=== PATIENT | female | born 1935 | race Caucasian/White ===

== ENCOUNTER 2018-06-26 08:17 | Inpatient (IN) | payer OTHER ==
[~2018-06-26] VITALS: Ht 152.4 cm; Wt 70.8 kg
[2018-06-26 08:26] VITALS: BP 143/76
[2018-06-26] MEDS ORDERED: COZAAR 25 MG TA25 M1 PO (08:39)
[2018-06-26] MEDS ORDERED: SYNTHROID100 MC1 PO (08:39)
[2018-06-26] MEDS ORDERED: ATORVASTATIN CA20 MG PO (08:39)
[2018-06-26] MEDS ORDERED: LASIX 20 MG TAB20 MG PO (08:39)
[2018-06-26] MEDS ORDERED: CLARITIN10 MG PO (08:40)
[2018-06-26 08:41] LABS: HEMATOCRIT 32.3 % (37.0-47.0); HEMOGLOBIN 11.1 gm/dL (12.0-15.0); MCH 35.3 pg (26.0-34.0); MCHC 34.2 g/dL (28.0-37.0); MCV 103.2 fL (80.0-100.0); MPV 8.3 fl. (7.2-11.1); NUCLEATED RBCS 0 /100WBC; PLATELET COUNT* 153 thou/uL (150-400); RBC 3.13 mil/uL (4.20-5.00); RDW-CV 13.1 % (10.5-14.5); WBC 5.6 thou/uL (4.0-11.0)
[2018-06-26 08:48] LABS: CREATININE 1.1 mg/dL (0.6-1.3)
[2018-06-26 09:02] LABS: ALBUMIN 3.1 g/dL (3.4-5.0); TOTAL PROTEIN 6.9 g/dL (6.4-8.2); TROPONIN-I LEVEL 0.08 ng/mL (<0.06)
[2018-06-26 09:16] LABS: ABSOLUTE LYMPHOCYTES 0.8 thou/uL (0.8-5.3); ABSOLUTE MONOCYTES 0.1 thou/uL (0.0-1.2); ABSOLUTE NEUTROPHILS 4.7 thou/uL (1.6-8.1)
[2018-06-26 09:43] LABS: URINE BILIRUBIN NEGATIVE (Negative); URINE BLOOD 1+ (Negative); URINE CLARITY CLEAR; URINE COLOR YELLOW; URINE GLUCOSE-RANDOM NEGATIVE (Negative); URINE KETONES TRACE (Negative); URINE LEUKOCYTES-REFLEX NEGATIVE (Negative); URINE NITRITE-REFLEX NEGATIVE (Negative); URINE PROTEIN TRACE (Negative)
[2018-06-26 10:00] LABS: BACTERIA-REFLEX 1-9 Few /HPF (None Seen); CASTS None Seen /LPF (None Seen); CRYSTALS None Seen /LPF (None Seen); MUCUS None Seen strn/LPF (None Seen); SQUAMOUS 0-3 Few /LPF (0-3); URINE RBC 3-10 Few /HPF (0-2); URINE WBC-REFLEX 0-5 Rare /HPF (0-5)
[2018-06-26 11:47] VITALS: BP 142/69
[2018-06-26 12:10] VITALS: BP 148/79
--- NOTE | 2018-06-26 16:26 | EKG ---
[place] [address] ELECTROCARDIOGRAM REPORT Name: NAYELY JAQUEZ Room: [address] ADM IN M.R.#: [id number] Admission: 06/26/18 Attend Phys: Payton Cantu MD Discharge: Date of : 39 Report #: [id number] THIS REPORT FOR: //name// [facility] ED Test Date: 2018-06-26 Test Time: 08:51:59 Pat Name: NAYELY JAQUEZ Department: Room: [facility] Gender: F Liquid Loader: : 1935 Requested By: Jocy Wyatt Order Number: [id number] MD: Toni Michelle Measurements Intervals [place] Rate: 62 P: 3 GA: 60 QRS: 2 QRSD: 92 T: 10 QT: 435 QTc: 442 Interpretive Statements Atrial-paced complexes Probable left atrial enlargement Low voltage, precordial leads Borderline T abnormalities, anterior leads No previous ECG available for comparison Electronically Signed On 06-26-2018 16:26:19 APPLICATION SUPPORT TECHNICIAN by Toni Michelle [email or web address] <ELECTRONICALLY SIGNED> By: Toni Michelle MD, [facility] 06/26/18 [id number] Toni Michelle MD, [facility] /EPI
--- NOTE | 2018-06-26 16:46 | 2DMMODE ---
[place] [address] 2 D/M-MODE ECHOCARDIOGRAM Name: GISELENAYELY Room: [address] IN [facility]#: [id number] Admission: 06/26/18 Attend Phys: Payton Cantu, Discharge: Date of : 39 Date of Service: 06/26/18 1645 Report #: [id number] THIS REPORT FOR: //name// APPROVED REPORT Study performed: 06/26/2018 15:39:52 EXAM: Comprehensive 2D, Doppler, and color-flow Echocardiogram Patient Location: In-Patient Room #: 202 Status: routine BSA: 1.71 HR: 64 bpm BP: 142/69 mmHg Rhythm: NSR Other Information Study Quality: Good Indications Elevated Troponin 2D Dimensions IVSd: 11.07 (7-11mm) LVOT Diam: 19.32 (18-24mm) LVDd: 45.44 mm PWd: 11.07 (7-11mm) Ascending Ao: 40.28 (22-36mm) LVDs: 23.89 (25-40mm) Aortic Root: 30.70 mm Volumes Left Atrial Volume (Systole) LA ESV Index: 35.00 mL/m2 Aortic Valve AoV Peak Napoleon.: 1.31 m/s AO Peak Gr.: 6.84 mmHg LVOT Max P.71 mmHg AO Mean Gr.: 3.56 mmHg LVOT Mean P.56 mmHg LVOT Max V: 0.96 m/s AO V2 VTI: 28.88 cm LVOT Mean V: 0.56 m/s CAMRYN (VTI): 2.39 cm2 LVOT V1 VTI: 23.54 cm AI [place]: 1.55 m/s2 AI PHT: 757.23 ms Mitral Valve E/A Ratio: 0.62 [place] [address] 2 D/M-MODE ECHOCARDIOGRAM Name: NAYELY JAQUEZ Room: [address] IN .R.#: [id number] Admission: 06/26/18 Attend Phys: Payton Cantu, Discharge: Date of : 39 Date of Service: 06/26/18 1645 Report #: [id number] MV Decel. Time: 327.37 ms MV E Max Napoleon.: 0.60 m/s MV PHT: 94.94 ms MVA (PHT): 2.32 cm2 TDI E/Lateral E': 8.57 E/Medial E': 8.57 Medial E' Napoleon.: 0.07 m/s Lateral E' Napoleon.: 0.07 m/s Pulmonary Valve PV Peak Napoleon.: 0.80 m/s PV Peak Gr.: 2.56 mmHg Tricuspid Valve RAP Estimate: 5.00 mmHg TR Peak Gr.: 19.00 mmHg RVSP: 24.00 mmHg PA Pressure: 24.00 mmHg Left Ventricle The left ventricle is normal size. There is normal LV segmental wall motion. There is normal left ventricular wall thickness. Left ventricular systolic function is normal. LVEF is 60-65%. Grade I - abnormal relaxation pattern. Right Ventricle The right ventricle is normal size. The right ventricular systolic function is normal. Pacemaker lead is present in the right ventricle. Atria Left atrium is mildly dilated. The right atrium size is normal. Aortic Valve The aortic valve is normal in structure. Mild aortic regurgitation. There is no aortic valvular stenosis. Mitral Valve There is mitral annular calcification. Trace mitral regurgitation. No evidence of mitral valve stenosis. Tricuspid Valve The tricuspid valve is normal in structure. Mild tricuspid regurgitation. No pulmonary hypertension. Pulmonic Valve The pulmonary valve is normal [place] [address] 2 D/M-MODE ECHOCARDIOGRAM Name: NAYELY JAQUEZ Room: [address] IN [facility]#: [id number] Admission: 06/26/18 Attend Phys: Payton Cantu, Discharge: Date of : 39 Date of Service: 06/26/18 1645 Report #: [id number] regurgitation. Great Vessels The aortic root is normal in size. The ascending aorta is mildly dilated. IVC is normal in size and collapses >50% with inspiration. Pericardium There is no pericardial effusion. <Conclusion> The left ventricle is normal size. There is normal left ventricular wall thickness. Left ventricular systolic function is normal. LVEF is 60-65%. Grade I - abnormal relaxation pattern. Left atrium is mildly dilated. Pacemaker lead is present in the right ventricle. Mild aortic regurgitation. Trace mitral regurgitation. Mild tricuspid regurgitation. No pulmonary hypertension. IVC is normal in size and collapses >50% with inspiration. The ascending aorta is mildly dilated. <ELECTRONICALLY SIGNED> By: Toni Michelle MD, FACC 06/26/18 1645 1645 1645 Toni Michelle MD, FACC /INF
--- NOTE | 2018-06-26 17:50 | NUR ---
PATIENT PROGRESSING TOWARDS GOALS. TOLERATING A CLEAR LIQUID DIET WITHOUT NAUSEA OR VOMITING. VOIDING PER BEDPAN. IVF INFUSNG. PATIENTS DAUGHTER AT BEDSIDE AND UPDATED ON PLAN OF CARE. NEW IV STARTED IN PATIENTS LEFT FOREARM VIA DATA CONTROL CLERK SUPERVISOR. HOURLY ROUNDING CHARTED. BED ALARM ON. REPOSITIONING FOR COMFORT. WILL CONTINUE PLAN OF CARE.
[2018-06-26 20:00] VITALS: BP 128/66
[2018-06-27] VITALS: BP 111/64
--- NOTE | 2018-06-27 03:59 | NUR ---
ASSUMED CARE OF PT AT 1900. PT IS CONFUSED. VIC. ALYSSA. PT IS A Q2 TURN. PT HAS BRUISING TO HER FACE FROM FALL. FAMILY REPORTS PT IS SOMEWHAT CONFUSED AT HOME, BUT IS WORSE SINCE YESTERDAY. PT IS A PACED ON THE TELEMETRY. PT IS RESTING COMFORTABLY IN BED. RESPIRATIONS ARE EVEN AND NONLABORED. WILL CONTINUE TO MONITOR PT.
[2018-06-27 04:00] VITALS: BP 119/64
[2018-06-27 05:31] LABS: HEMATOCRIT 29.3 % (37.0-47.0); HEMOGLOBIN 10.1 gm/dL (12.0-15.0); MCH 35.5 pg (26.0-34.0); MCHC 34.5 g/dL (28.0-37.0); MCV 102.9 fL (80.0-100.0); MPV 8.2 fl. (7.2-11.1); RBC 2.85 mil/uL (4.20-5.00); WBC 4.4 thou/uL (4.0-11.0)
[2018-06-27 05:52] LABS: ALBUMIN 2.6 g/dL (3.4-5.0); ALKALINE PHOSPHATASE 57 U/L (46-116); ANION GAP 7 mmol/L (7-16); BUN 23 mg/dL (7-18); CALCIUM 8.5 mg/dL (8.5-10.1); CHLORIDE 106 mmol/L (98-107); CO2 26 mmol/L (21-32); CREATININE 0.9 mg/dL (0.6-1.3); GLUCOSE 64 mg/dL (70-99); MAGNESIUM 1.8 mg/dL (1.8-2.4); POTASSIUM 3.5 mmol/L (3.5-5.1); SGOT 93 U/L (15-37); SGPT 31 U/L (30-65); SODIUM 139 mmol/L (136-145); TOTAL BILIRUBIN 0.7 mg/dL (<0.1-1.0); TOTAL PROTEIN 5.9 g/dL (6.4-8.2); TROPONIN-I LEVEL <0.06 ng/mL (<0.06)
--- NOTE | 2018-06-27 06:36 | NUR ---
PT'S BLOOD GLUCOSE CAME BACK 64. TRIED TO HAVE PT DRINK CLEAR ENSURE THROUGH A STRAW. PT WAS TOO CONFUSED BUT WAS ABLE TO DRINNK 300ML OF ENSURE WITH SMALL SIPS OUT OF CUP AND NO STRAW. WILL NOTIFY DAY SHIFT.
[2018-06-27 09:00] VITALS: BP 136/63
--- NOTE | 2018-06-27 12:11 | NUR ---
Nutrition: Consult received for "low protein intake." Pt is on clear liquid diet. RN helped her sip Ensure Clear. Ensure Clear has 8g protein per [address] will order Ensure clear t.i.d. Albumin 2.6. Pt has edema, no HF. Wt: 164#. Admitted with AMS. No other nutrition interventions needed at this time. CONTINUE ENCOURAGING ENSURE CLEAR.
[2018-06-27 12:16] VITALS: BP 129/66
--- NOTE | 2018-06-27 12:20 | NUR ---
CM spoke with Pt's at bedside. Per , Pt is normally ambulatory at home. Dtr lives 4 houses down and assists Pt with IADLS and completes the cooking and cleaning. Son and dtr share transportation duties. Pt has a walker, wc and cane at home that she can use for mobility. Per PT recommended inpt rehab for Pt, CM to contact rehabilitator to have her review Pt's chart to see if she would qualify for acute rehab. Spoke with erin Vazquez dc within the next few days, she is aware of rehab discussion. No hx of HH or SNF. Following.
--- NOTE | 2018-06-27 12:30 | NUR ---
REC'D REPORT FROM NOC RN, ASSUMED CARE OF PT APPROX 0730. ORIENTED TO SELF. ANSWERS ORIENTATION QUESTIONS BEFORE PT CAN. EDUCATION GIVEN, VOICED UNDERSTANDING. PT IS SLOW TO ANSWER. HANDWRITING EXPERT IN PLACE, A-PACED. O2 SAT: >92% 2L/MIN NC. ASSESSMENT COMPLETE, DOCUMENTED. MEDS PER MAR. IV FLUIDS INFUSING ORDERED. PT'S ASSISTING WITH MEALS. PT NOT INTERESTED IN MEALS. CALL LIGHT IN REACH. FREQUENT CHECKS.
[2018-06-27 16:07] VITALS: BP 168/74
[2018-06-27 19:25] VITALS: BP 153/61
[2018-06-28] VITALS: BP 166/76
--- NOTE | 2018-06-28 01:07 | NUR ---
ASSUMED CARE OF PT AT 1900. PT IS CONFUSED. VSS. PERRLA. NO COMPLAINTS OF PAIN. PT IS EATING JELLO. IS AT BEDSIDE. PT IS IN SINUS RYTHM ON THE TELEMETRY. PT IS RESTING COMFORTABLY IN BED. RESPIRATIONS ARE EVEN AND NONLABORED. WILL CONTINUE TO MONITOR PT.
[2018-06-28 04:00] VITALS: BP 156/82
[2018-06-28 04:52] LABS: HEMATOCRIT 31.1 % (37.0-47.0); HEMOGLOBIN 10.6 gm/dL (12.0-15.0); MCH 35.1 pg (26.0-34.0); MCHC 34.2 g/dL (28.0-37.0); MCV 102.4 fL (80.0-100.0); MPV 8.3 fl. (7.2-11.1); RBC 3.03 mil/uL (4.20-5.00); WBC 5.2 thou/uL (4.0-11.0)
[2018-06-28 05:11] LABS: CREATININE 0.9 mg/dL (0.6-1.3); MAGNESIUM 1.5 mg/dL (1.8-2.4); POTASSIUM 3.2 mmol/L (3.5-5.1)
[2018-06-28 08:00] VITALS: BP 158/72
[2018-06-28 12:00] VITALS: BP 153/79
[2018-06-28 17:00] VITALS: BP 130/66
--- NOTE | 2018-06-28 17:48 | NUR ---
ASSUMED CARE OF PT THIS AM ASSESSED AND DOCUMENTED. PT IS ON CARDIAC MONITER TRACING APACED. PT HAS TURBI CONCENTRATOR OPERATOR TO BLLE'S. SHE IS ON ROOM AIR AND HAS BEEN AFEBRILE. PT IS INCONTINENT OF URINE. PT HAS BEEN ON K+ PROTOCOL AND IS NOW WNL. PT ON MG+ PROTOCOL BUT WILL NEED TO CONT IS STILL LOW. PT HAS BEEN ON FALL PRECAUTIONS PER FACILITY PROTOCOL. FAMILY HAS BEEN AT BEDSIDE. EDUCATION GIVEN ON DEMAND HOURLY ROUNDING COMPLETE.
[2018-06-28 20:00] VITALS: BP 149/83
--- NOTE | 2018-06-28 20:00 | NUR ---
RECEIVED REPORT AND ASSUMED CARE OF PT, ASSESSMENT COMPLETED. PT SITTING UP IN CHAIR. RETURNED TO BED WITH MUCH ENCOURAGEMENT AND MAX ASSIST. TUBE STOCKINGS APPLIED TO SHANNON LOWER LEGS. TELEMETRY REMOVED ORDERED. IV RESTARTED. FAMILY AT BEDSIDE. WILL CONT TO MONITOR AND ASSIST NEEDED.
[2018-06-29] VITALS: BP 184/70
[2018-06-29 04:00] VITALS: BP 144/82
--- NOTE | 2018-06-29 05:53 | NUR ---
SLEPT WELL TONIGHT. ASSISTED WITH REPOSITIONING NEEDED. PULSE OX ON TONIGHT, PT WEARING O2 AT 2L/NC. INCONT OF URINE. TELEMETRY CONT TO SHOW SR. NO COMPLAINTS THIS AM. HS GOALS OF REST AND SAFETY ACHIEVED. HOURLY ROUNDING OBSERVED.
--- NOTE | 2018-06-29 05:56 | NUR ---
ASSISTED WITH REPOSITIONING Q 2 HR. UP TO BSC X1 WITH MAX ASSIST. PT UNABLE TO FOLLOW DIRECTIONS FOR MOVEMENT. INCONT OF URINE. STAYING AT BEDSIDE. ASSESSMENT UNCHANGED. HS GOALS OF REST AND SAFETY ACHIEVED. HOURLY ROUNDING OBSERVED.
[2018-06-29 08:00] VITALS: BP 169/81
--- NOTE | 2018-06-29 11:00 | NUR ---
PATIENT TRANSFERING TO [address] CALLED FOR REPORT. PT TRANSFERED PER BED.
[2018-06-29 11:15] VITALS: BP 165/92
[2018-06-29 15:53] VITALS: BP 164/94
[2018-06-29 20:00] VITALS: BP 152/70
[2018-06-30 04:54] LABS: HEMATOCRIT 32.7 % (37.0-47.0); MCH 34.4 pg (26.0-34.0); MCHC 33.5 g/dL (28.0-37.0); MCV 102.6 fL (80.0-100.0); MPV 8.6 fl. (7.2-11.1); RBC 3.19 mil/uL (4.20-5.00); RDW-CV 13.3 % (10.5-14.5); WBC 6.3 thou/uL (4.0-11.0)
[2018-06-30 05:51] LABS: CALCIUM 8.3 mg/dL (8.5-10.1); CREATININE 0.8 mg/dL (0.6-1.3); MAGNESIUM 1.6 mg/dL (1.8-2.4); POTASSIUM 3.8 mmol/L (3.5-5.1)
--- NOTE | 2018-06-30 06:42 | NUR ---
ASSUMED PATIENT CARE AT 1900. PATIENT ALERT TO SELF. AT BEDSIDE, ASKED MULTIPLE QUESTIONS, ALL QUESTIONS ANSWERED. PATIETN INCONTINENT THROUGH THE NIGHT. TURNED Q2 HOURS. NO OBVIOUS SIGNS OF PAIN OR DISCOMFORT. IV PATENT. TAKES MEDICATIONS WITHOUT ANY PROBLEM. HOURLY ROUNDING AND SEED CLEANING MACHINE OPERATOR COMPLETED DOCUMENTED. FALL RISK PRECAUTIONS IN PLACE
[2018-06-30 08:00] VITALS: BP 189/87
[2018-06-30 16:00] VITALS: BP 145/74
--- NOTE | 2018-06-30 17:35 | NUR ---
SHIFT NOTE - PT ORIENTED TO SELF ONLY, PLEASANT. PT IS INC OF URINE BUT DID AMBULATE TO BSC AND URINATED ABOUT 300ML AND SMALL BM. AT BEDSIDE FOR ALL OF THIS SHIFT. WILL CONTINUE TO MONITOR.
[2018-06-30 21:30] VITALS: BP 173/86
[2018-07-01 00:22] VITALS: BP 143/75
[2018-07-01 04:21] LABS: HEMATOCRIT 33.2 % (37.0-47.0); HEMOGLOBIN 11.5 gm/dL (12.0-15.0); MCH 35.2 pg (26.0-34.0); MCHC 34.6 g/dL (28.0-37.0); MCV 101.8 fL (80.0-100.0); MPV 8.5 fl. (7.2-11.1); RBC 3.26 mil/uL (4.20-5.00); WBC 5.3 thou/uL (4.0-11.0)
[2018-07-01 04:38] LABS: CALCIUM 8.5 mg/dL (8.5-10.1); CREATININE 0.8 mg/dL (0.6-1.3); MAGNESIUM 1.7 mg/dL (1.8-2.4); POTASSIUM 3.3 mmol/L (3.5-5.1)
--- NOTE | 2018-07-01 05:30 | NUR ---
ALERT TO SELF. PLEASANT AND COOPERATIVE. INCONTINENT OF URINE. DENIES PAIN WHEN ASKED. TURNED EVERY [address] ON LOWER EXTREMITIES. BED ALARM ON. CALL LIGHT WITHIN REACH.
[2018-07-01 08:00] VITALS: BP 121/69
--- NOTE | 2018-07-01 16:58 | NUR ---
SHIFT NOTE - PT UP TO BSC SEVERAL TIMES TODAY AND HER CHUX WAS DRY. PT VOIDED AND HAD A SMALL BM. DTR PRESENT AT BEDSIDE FOR MOST OF THIS SHIFT. WILL CONTINUE TO MONITOR.
[2018-07-01 17:09] VITALS: BP 124/69
[2018-07-01 19:37] VITALS: BP 147/66
--- NOTE | 2018-07-02 04:53 | NUR ---
ALERT TO SELF. PLEASANT AND COOPERATIVE. INCONTINENT OF URINE DURING NIGHT. REPOSITIONED/TURNED APROXIMATELY EVERY 2 HOURS. FAMILY AT BEDSIDE. RESTING QUIETLY ON HOURLY ROUNDS. CALL LIGHT WITHIN REACH. WILL CONTINUE TO JACKIE
[2018-07-02 05:41] LABS: CALCIUM 8.6 mg/dL (8.5-10.1); CREATININE 0.9 mg/dL (0.6-1.3); MAGNESIUM 1.8 mg/dL (1.8-2.4); POTASSIUM 4.1 mmol/L (3.5-5.1)
[2018-07-02 07:57] VITALS: BP 142/70
[2018-07-02] MEDS ORDERED: LIDOPATCH1 EACH TOP (09:54)
[2018-07-02] MEDS ORDERED: TRAMADOL 50 MG50 MG PO (09:54)
[2018-07-02] MEDS ORDERED: PANTOPRAZOLE SO40 M1 PO (09:54)
[2018-07-02 10:30] VITALS: BP 142/70
--- NOTE | 2018-07-02 11:32 | NUR ---
Dr Cantu informed MARIA DEL ROSARIO that pt was medically ready to dc to inpt rehab or other facility for rehab today. MARIA DEL ROSARIO discussed possible admit to inpt rehab at [facility] with rehabilitation tech Jayna; insurance auth and review of pt to be accepted was not complete and not certain that there would be a bed for pt today. MARIA DEL ROSARIO met with pt and pt ; pt was not able to communicate very well and pt thought that pt would be able to dc to inpt rehab; MARIA DEL ROSARIO explained inpt rehab unit remains full with pts waiting to admit and MARIA DEL ROSARIO provided other options of SNFs. MARIA DEL ROSARIO called pt dtr Norma who did not answer so MARIA DEL ROSARIO left a detailed message requesting call back. MARIA DEL ROSARIO faxed potential referral to [facility] to at least possibly have an option for placement; MARIA DEL ROSARIO to continue to follow to assist with finalizing safe dc plan/placement.
[2018-07-02 16:26] VITALS: BP 124/69
--- NOTE | 2018-07-02 17:22 | NUR ---
FOLLOWING PATIENT ALONG WITH DR. LIN FOR POSSIBLE REHAB ADMISSION. PATIENT WITH RHABDOMOLYSIS FALL WITH FORHEAD ABRASION AND POSSIBLE CONSUSSION VS. CLOSED HEAD INJURY. WORKING WITH THERAPIES, HAS DEFINATE REHAB NEEDS. PATIENT AND FAMILY AGREEABLE. HAVE REQUESTED INSURANCE AUTHORIZATION. WILL PLAN TO ADMIT TO REHAB ONCE MEDICALLY STABLE AND PENDING INSURANCE AUTHORIZATION. NOTIFIED RUSLAN TURNER.
--- NOTE | 2018-07-02 18:02 | NUR ---
AT BEDSIDE THROUGH DAY. PT TRANSFERS WITH MAX ASSIST AND FREQUENT PROMPTS. PT ALERT TO SELF. NO C/O.
--- NOTE | 2018-07-03 05:40 | NUR ---
PATIENT PROGRESSING TO GOALS. TO ACUTE CHANGES OVERNIGHT. ORIENT TO PERSON AND . ABLE TO TAKE PO MEDICATIONS WITH NO COMPLICATIONS. DENIES PAIN. PT WAS TURNED Q2H THROUGHOUT SHIFT PT VERY STIFF. LINEN AND GOWN CHANGED. REMAINS SL. BED TO LOWEST POSITION. FALL PRECAUTIONS IN PLACE PER PT SAFETY. CALL LIGHT WITHIN REACH. WILL CONTINUE TO MONITOR.
[2018-07-03 08:00] VITALS: BP 106/86
--- NOTE | 2018-07-03 12:31 | NUR ---
SW continuing to follow up on dc planning and placement. SW spoke with pt son yesterday late afternoon and pt son was in agreement with placement and did not have a preference of location although also said he would just want to take pt home; SW explained recommendation of inpt rehab or SNF; pt son was not aware of burden of care and did not indicate whether or not pt would have needed assist at home. SW received call from [facility] yesterday as well and denied referral stating that they felt pt might need LTC after rehab. Inpt rehab auth still pending according to rehab trainerJayna. SW sent referral to [facility] to review for a possible back up option/placement if needed. SW to continue to follow to assist with finalizing safe dc plan.
[2018-07-03 16:00] VITALS: BP 123/62
--- NOTE | 2018-07-03 18:21 | NUR ---
PATIENT HAS BEEN A/O TO PERSON THIS SHIFT. PATIENT HAS DENIED PAIN. PATIENT REPOSITIONED EVERY 2 HOURS WHILE IN BED. BED BATH COMPLETED. PATIENT INCONTINENT OF URINE AT TIMES, RANCHO-CARE PROVIDED. HEELS ELEVATED ON PILLOWS, TUBIGRIPS IN PLACE TO BILATERAL LEGS. PATIENT PARTICIPATING WITH THERAPIES. APPETITE IMPROVED. FAMILY AT BEDSIDE THIS SHIFT. FALL PRECAUTIONS IN PLACE. HOURLY ROUNDING COMPLETED. CALL LIGHT WITHIN REACH. WILL CONTINUE WITH PLAN OF CARE.
[2018-07-03 20:04] VITALS: BP 116/55
--- NOTE | 2018-07-04 05:20 | NUR ---
PATIENT SLEPT WELL DURING THIS SHIFT. FAMILY MEMBER AT BEDSIDE. PT WITH SALINE LOCK IN LT FOREARM, PATENT. PT INCONTINENT OF BOWEL AND BLADDER. PT TURNED Q2H PER PROTOCAL. PT HAS TUBIGRIP BILATERALLY ON LOWER EXTREMITIES FOR EDEMA; HEELS ELEVATED. PT IS ALERT AND ORIENTED TO SELF AND ORIENTED TO PERSON. PT ABLE TO ANSWER SIMPLE YES/NO QUESTIONS. PT DENIES NEEDS AT THIS TIME. FREQUENTLY USED ITEMS AND CALL LIGHT WITHIN REACH. SIDERAILS UPX4 PER 'S REQUEST AND BED ALARM ON. WILL CONTINUE TO MONITOR.
[2018-07-04 08:25] VITALS: BP 145/76
--- NOTE | 2018-07-04 12:49 | NUR ---
Nutrition: follow up. Pt awaiting to transfer to a facility. ?LTC. Diet advanced to Regular. Wt is down to 156# (pt had edema prior to). Continue encouraging Ensure or supplement of choice. Will follow up per protocol.
--- NOTE | 2018-07-04 15:27 | NUR ---
MARIA DEL ROSARIO received feedback from rehab therapy manager and Dr Martinez that the peer to peer did not result in an approval yet for pt to dc to inpt rehab but that Dr Martinez wanted pt to admit to rehab and ordered a CT scan and neuro eval in hopes to clarify the need and justification; also noted that a ST eval would further support the need for inpt rehab. SW spoke with pt son to update of plan for pt to remain in hospital due to recommendations for inpt rehab. SW to continue to follow to assist with safe dc planning and placement.
[2018-07-04 16:00] VITALS: BP 120/58
--- NOTE | 2018-07-04 19:49 | NUR ---
PATIENT HAS BEEN A/O TO PERSON THIS SHIFT, FORGETFUL AT TIMES. PATIENT HAS DENIED PAIN. LIDODERM PATCH IN PLACE TO BACK. TUBIGRIPS IN PLACE TO BLE, HEELS ELEVATED THIS SHIFT. PATIENT UP IN CHAIR FOR MOST OF SHIFT, REPOSITIONED WHILE IN CHAIR AND RANCHO-CARE PROVIDED WITH EACH INCONTINENT EPISODE. PATIENT HAD REPEAT CT OF HEAD THIS EVENING. NEURO CONSULTED PER DR LIN, DR WEBER STATES WILL SEE PATIENT IN AM. PATIENT PARTICIPATED WITH THERAPIES THIS SHIFT. PATIENT'S FAMILY AT BEDSIDE THIS SHIFT. UPDATED ON PLAN OF CARE. FALL PRECAUTIONS IN PLACE. HOURLY ROUNDING COMPLETED. CALL LIGHT WITHIN REACH. WILL CONTINUE WITH PLAN OF CARE.
[2018-07-04 21:00] VITALS: BP 114/53
--- NOTE | 2018-07-05 06:57 | NUR ---
PATIENT SLEPT MOST OF THE NIGHT. IV REMAINS SALINE LOCKED. PATIENT HAS BEEN INCONTINENT. PATIENT IS STILL CONFUSED. WILL CONTINUE TO MONITOR.
[2018-07-05 07:40] VITALS: BP 151/48
[2018-07-05 10:42] LABS: HEMOGLOBIN 12.1 gm/dL (12.0-15.0); MCH 34.1 pg (26.0-34.0); MCHC 33.5 g/dL (28.0-37.0); MCV 101.8 fL (80.0-100.0); MPV 7.7 fl. (7.2-11.1); RBC 3.54 mil/uL (4.20-5.00); RDW-CV 13.5 % (10.5-14.5); WBC 4.8 thou/uL (4.0-11.0)
[2018-07-05 10:58] LABS: ALBUMIN 2.9 g/dL (3.4-5.0); CALCIUM 9.2 mg/dL (8.5-10.1); POTASSIUM 3.8 mmol/L (3.5-5.1); TOTAL BILIRUBIN 0.5 mg/dL (<0.1-1.0); TOTAL PROTEIN 7.3 g/dL (6.4-8.2)
[2018-07-05 15:43] VITALS: BP 129/54
--- NOTE | 2018-07-05 16:32 | NUR ---
MARIA DEL ROSARIO discussed dc planning with Dr Cantu who continues to be prepared for pt to dc and approves of pt medical readiness to dc. Dr Cantu recommends pt to have rehab inpt or SNF in inpt not an option and then at the very least, home with 24/7 supervision and assistance as needed. MARIA DEL ROSARIO called and spoke with admissions at [facility] about possibility that pt would need SNF. Then MARIA DEL ROSARIO informed rehabilitation services director who said that Dr Martinez was actually appealing the decision with the insurance. MARIA DEL ROSARIO called admissions of SNF back and left message with above info. MARIA DEL ROSARIO and rehabilitation services director met with pt son this morning; pt son was hopeful pt would be able to dc to rehab today. SW explained pending appeal and insurance final decision; SW discussed having SNF as back up option; pt son said he would not want SNF and would just rather take pt home. SW explained recommendation would be for 24/7 care of capable caregiver and pt son said the evenings wouldn't be a problem, but there is concern for during the day because then pt would not have needed support. MARIA DEL ROSARIO spoke again with Dr Cantu to update of the situation and pending placement. MARIA DEL ROSARIO received message from [place] with pt insurance and MARIA DEL ROSARIO called back but had to leave a message as well and requested return call to discuss dc planning. SW to continue to follow to assist with safe dc planning and placement as needed.
--- NOTE | 2018-07-05 16:36 | NUR ---
PATIENT INCONTINENT OF URINE THIS SHIFT, PATIENT DID ASK FOR BEDPAN THIS AFTERNOON X 1 TO VOID. UP TO CHAIR WITH THERAPY THIS AFTERNOON. SNF PLACEMENT VS REHAB, AWAITING INSURANCE AUTH. IV REMAINS SL. PATIENT SET UP FOR MEALS. TURNED Q2.
--- NOTE | 2018-07-05 17:11 | NUR ---
CONTINUING TO FOLLOW PATIENT ALONG WITH DR. LIN. INSURANCE DENIED ACUTE REHAB. PEER TO PEER DONE INSURANCE UPHELD DENIAL. 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 NEUROLOGY SAW PATIENT TODAY AGREED WITH REHAB PHYSICIAN ON PATIENTS NEED TO BE MORE MEDICALLY MONITORED AND REHABILIATION IN AN ACUTE REHAB SETTING. INSURANCE APPEAL INITIATED BY REHAB PHYSICIAN AND PER FAMILY REQUEST. AWAIT INSURANCE DECISION.
[2018-07-05 20:20] VITALS: BP 119/53
--- NOTE | 2018-07-06 05:04 | NUR ---
PT SLEPT ON AND OFF THIS SHIFT. ASSESSMENT DOCUMENTED. MEDS GIVEN PER E-SEP. IV PATENT. NO REPORTS OF PAIN THIS SHIFT. PT REPOSTIONED THROUGH NIGHT. FALL PRECAUTIONS IN PLACE. WILL CONTINUE WITH PLAN OF CARE.
[2018-07-06 07:50] VITALS: BP 113/65
--- NOTE | 2018-07-06 15:06 | NUR ---
SW continuing to follow to assist with safe dc planning. SW checking in with director of cardiac rehabilitation periodically; director of cardiac rehabilitation will inform SW as soon as she hears anything of a decision from the appeal process. SW to continue to follow to assist with dc--if not to inpt rehab, recommendation would be SNF and [facility] considering being able to accept pt. However, pt son not committed to agreeing to SNF at this point; SW would provide information again on medical recommendations.
[2018-07-06 16:00] VITALS: BP 108/52
--- NOTE | 2018-07-06 17:26 | NUR ---
PATIENT UP WITH THERAPY TODAY. AWAITING INSURANCE AUTH FOR REHAB. PATIENT HAD EEG THIS AM, DR. WEBER NOTIFIED TEST WAS DONE THIS AM AND WILL REVIEW RESULTS. AT BEDSIDE. PATIENT IN CHAIR AT THIS TIME.
[2018-07-06 20:20] VITALS: BP 119/70
--- NOTE | 2018-07-07 07:49 | NUR ---
PT SLEPT MOST OF SHIFT. ASSESSMENT DOCUMENTED. MEDS GIVEN PER E-MAR. IV PATENT. TYLENOL GIVEN FOR BACK PAIN THIS SHIFT. PT REPOSITIONED THROUGH NIGHT. WILL CONTINUE WITH PLAN OF CARE.
[2018-07-07 15:59] VITALS: BP 99/47
--- NOTE | 2018-07-07 16:43 | NUR ---
PATIENT HAS BEEN ALERT TODAY, VITAL SIGNS STABLE ON ROOM AIR. AT BEDSIDE TODAY. WORKED WITH THERAPT AND TOLERATED OKAY. INCONTINENT OF BOWEL AND BLADDER TODAY. CALL LIGHT IS IN REACH, BED AND CHAIR ALARM ON. WILL CONTINUE TO MONITOR.
--- NOTE | 2018-07-07 17:22 | NUR ---
ASSUMED CARE OF PT AT 1645. READ AND AGREE WITH ASSESSMENT. PT IS SLEEPING IN BEDSIDE CHAIR. HOURLY ROUNDING COMPLETE.
[2018-07-07 20:00] VITALS: BP 128/76
--- NOTE | 2018-07-08 04:19 | NUR ---
ASSESSMNT: PT REMAIN ALERT TO SELF ONLY, DOES NOT ANSWER ANY QUESTIONS CORRECTLY. DAUGHTER WAS AT THE BEDSIDE EARLIER DURING THE SHIFT, THEN LEFT FOR HOME. VSS, AFEBRILE. TURNED EVERY TWO HOURS. ONE SMEAR OF A BM. PLEASANT AND ATTEMPTS TO FOLLOW SIMPLE COMMANDS. WILL CONTINUE TO MONITOR. SLOW PROGRESS TOWARDS DC GOALS.
[2018-07-08 07:50] VITALS: BP 80/55
[2018-07-08 16:47] VITALS: BP 119/65
--- NOTE | 2018-07-08 17:29 | NUR ---
PATIENT RESTING UP IN CHAIR. PATIENT IS UP WITH MAX ASSIST OF 2. PATIEN TIS ORIENTED TO SELF ONLY. PATIENT UP TO COMMODE WITH ASSIST TODAY. PATIENT GOOD APPETITE. PATIENT DENIES ANY PAIN. FAMILY AT BEDSIDE. CHAIR ALARM ON. WILL CONTINUE TO MONITOR.
[2018-07-08 21:00] VITALS: BP 106/54
--- NOTE | 2018-07-09 05:55 | NUR ---
PATIENT HAS SLEPT SINCE LEFT AT 2100. NO COMPLAINTS OF ANY KIND TODAY. VITAL SIGNS HAVE BEEN STABLE ON ROOM AIR. CALL LIGHT IS IN REACH WILL CONTINUE TO MONITOR.
[2018-07-09 08:30] VITALS: BP 124/79
--- NOTE | 2018-07-09 13:46 | NUR ---
Pt to dc to inpt rehab today at [facility].
[2018-07-09] MEDS ORDERED: ENOXAPARIN30 MG/0.1 SUBQ (14:01)
--- NOTE | 2018-07-09 15:05 | NUR ---
PATIENT DISCHARGED TO INPATIENT REHAB. REPORT GIVEN TO NOEMI DUMONT. PATIENT TAKEN BY BED TO ROOM 223.
--- NOTE | 2018-07-10 14:49 | EEG ---
[address] [address] EEG STUDY REPORT Name: NAYELY JAQUEZ Room: [address] IN M.R.#: [id number] Admission: 06/26/18 Attend Phys: Payton Cantu MD Discharge: 07/09/18 Date of : 39 Report #: [id number] THIS REPORT FOR: //name// [facility] DATE OF SERVICE: 07/06/2018 This patient is being evaluated for altered mental status. EEG was done by placing the electrode by standard 10-20 system of electrode placement. Both referential and sequential montages were used for recording. Background activity in this patient's EEG is about 7 Hz and 30 microvolt. It is a symmetrical activity. It is slow on both sides. Photic stimulation was unremarkable. Throughout the record, no active epileptiform activity was noticed. IMPRESSION: This is an abnormal EEG because it is disorganized and poorly formed. That is a nonspecific abnormality, which can occur with encephalopathy, effect of psychotropic medication, dementia, etc. Clinical correlation is recommended. <ELECTRONICALLY SIGNED> By: Joseph Erwin MD 07/10/18 1449 [id number] Erwin MD /nt
--- NOTE | 2018-07-10 14:49 | CON ---
[address] [address] CONSULTATION Name: BRENTLACEYCEEA Room: [address] IN M.R.#: [id number] Admission: 06/26/18 Attend Phys: Payton Cantu MD Discharge: 07/09/18 Date of : 39 Report #: [id number] THIS REPORT FOR: //name// [facility] DATE OF SERVICE: 07/05/2018 HISTORY OF PRESENT ILLNESS: This is an 83-year-old female patient who was evaluated by me for possibility of traumatic brain injury. The patient does not provide a very good history. So, I called the patient's son and talked to him. This patient has some problem for a couple of years. He indicates some problem may have been even longer than that since her son . But she still was functional, as I understand, although she was lethargic and they indicated that she may have been depressed. She was ambulatory before this happened. This patient underwent multiple testings in the Emergency Room. She does have kyphosis and cervical spondylosis. She had two CT scans, which do not show any acute changes. She cannot have an MRI because of her pacemaker. She continued to be lethargic and poorly responsive. REVIEW OF SYSTEMS: Indicate that she has been diagnosed with dementia, but she was functional and living with her before this. It looks like she hit her head when she fell. Further history is not completely clear from either the record or from talking to the patient. She is also hard of hearing. She had an elevated CPK at one time. She was not acting normally. She has seen chinchilla machine operator here and she has seen chinchilla machine operator in the past. A 14-point review of systems was carried out the best I can from the record and this was the relevant one. PAST MEDICAL HISTORY: Positive for some memory problems, but she was still functional. There may also have been depression. FAMILY HISTORY: Negative for any early age stroke. SOCIAL HISTORY: Apparently, she does not drink any significant amount of alcohol. PHYSICAL EXAMINATION: Indicates the patient is very difficult to examine. She is sleepy, but she wakes up. When she wakes up, she will sometime follow commands, but not on a persistent basis. She has bandages on her leg. She moves everything very slowly. I tried to do the cranial nerve examination, she did not cooperate a whole lot. She does not appear to be in respiratory difficulty. The cardiac examination is noncontributory. Blood pressure is 151/48, respirations 18, pulse is 60, temperature is 98. LABORATORY DATA: Indicate a white count of 5.3. GFR is normal. [place] [address] CONSULTATION Name: NAYELY JAQUEZ Room: [address] IN M.R.#: [id number] Admission: 06/26/18 Attend Phys: Payton Cantu MD Discharge: 07/09/18 Date of : 39 Report #: [id number], which were reviewed and that does not show any acute changes. She also had a CT of the C-spine. IMPRESSION: Baseline cognitive deficit, which appears to have become significantly worse recently without much focal signs. 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 Workup is difficult because we cannot exclude all the other pathology because we cannot do an MRI and other testing. RECOMMENDATIONS: 1. I will get an EEG done. 2. I will repeat the blood workup including B12 and repeat thyroid function test, which was abnormal last time. 3. I agree with acute rehabilitation if possible. If she goes to rehabilitation, I will suggest trying either antidepressant or some stimulant in this patient, at least for a short-term basis. This one does not look like a stroke, but we cannot fully exclude that, but that way we can watch her closely in the rehabilitation if she qualifies for rehabilitation. I discussed the patient with the nurses yesterday, discussed the patient with nurses today, discussed with the rehab coordinator and had a long talk with the patient's son. More than 50 minutes of time was spent taking care of this patient and majority of that time was spent counseling and coordinating her care. <ELECTRONICALLY SIGNED> By: Joseph Erwin MD 07/10/18 1449 [id number] Erwin MD /nt
== END 2018-07-09 14:59 | DRG 88 ==
LOC: M.ERS 08:17 → M.3W 10:56 → M.2W 10:56 → M.TBA-ER 10:56 → M.2W 11:48 → M.3W 06-29 12:12
PROVIDERS: Personal Emergency Response Attendant; Psychiatry & Neurology Neuromuscular Medicine; ADMIT Internal Medicine
DX: S06.0X9A Concussion with loss of consciousness of unspecified duration, initial encounter (principal); G93.41 Metabolic encephalopathy; M48.54XA Collapsed vertebra, not elsewhere classified, thoracic region, initial encounter for fracture; E44.1 Mild protein-calorie malnutrition; T79.6XXA Traumatic ischemia of muscle, initial encounter; E03.9 Hypothyroidism, unspecified; E78.00 Pure hypercholesterolemia, unspecified; E78.5 Hyperlipidemia, unspecified; I10 Essential (primary) hypertension; W18.30XA Fall on same level, unspecified, initial encounter; Y93.89 Activity, other specified; Z95.0 Presence of cardiac pacemaker; Z68.30 Body mass index [BMI] 30.0-30.9, adult; Y92.89 Other specified places as the place of occurrence of the external cause; Y99.8 Other external cause status; Z79.899 Other long term (current) drug therapy

== ENCOUNTER 2018-07-09 11:33 | Inpatient (IN) | payer OTHER ==
[~2018-07-09] VITALS: Ht 152.4 cm; Wt 63.7 kg
[~2018-07-09 11:33] MED LIST: ATORVASTATIN CA20 MG PO; CLARITIN10 MG PO; COZAAR 25 MG TA25 M1 PO; LASIX 20 MG TAB20 MG PO; LIDOPATCH1 EACH TOP; PANTOPRAZOLE SO40 M1 PO; SYNTHROID100 MC1 PO; TRAMADOL 50 MG50 MG PO
[2018-07-09] MEDS ORDERED: ENOXAPARIN30 MG/0.1 SUBQ (14:01)
--- NOTE | 2018-07-09 18:55 | NUR ---
PT ADMITTED TO ROOM 323 WITH A DX OF TBI AND POST CONCUSSION SYNDROME. ADMISSION PROCESS COMPLETED. PT's ANSWERS ARE NOT RELATED TO THE QUESTIONS ASKED, MAJORITY OF ADMISSION TOOL COMPLETED WITH MEDICAL RECORDS AND FAMILY INPUT. PT DOES HAVE BILATERAL HEARING AIDES BUT HER DAUGHTER SAYS SHE RARELY WEARS THEM. THERE IS ALSO A PAIR OF GLASSES BUT THE DAUGHTER IS UNSURE IF THEY ARE THE PT's. FALL PRECAUTIONS AND HOURLY ROUNDING CONTINUE.
[2018-07-09 19:00] VITALS: BP 124/62
[2018-07-10 03:47] LABS: HEMATOCRIT 33.2 % (37.0-47.0); HEMOGLOBIN 11.1 gm/dL (12.0-15.0); MCH 34.2 pg (26.0-34.0); MCHC 33.5 g/dL (28.0-37.0); MCV 102.1 fL (80.0-100.0); MPV 8.1 fl. (7.2-11.1); RBC 3.25 mil/uL (4.20-5.00); RDW-CV 13.4 % (10.5-14.5)
[2018-07-10 03:59] LABS: CALCIUM 9.4 mg/dL (8.5-10.1); POTASSIUM 3.8 mmol/L (3.5-5.1)
--- NOTE | 2018-07-10 05:07 | NUR ---
ASSUMED CARES AT 1920. ALERT AND ORIENTED TO SELF. SOFT SPOKEN. CAN EASILY GET AGITATED AND NOT COOPERATIVE. COMBATIVE AT TIMES WHEN BEING TURNED OR CLEANED IN BED. SWUNG AT RN. PT SEEMS TO BE ABLE TO ANSWER SIMPLE QUESTIONS BUT OTHER TIMES ANSWERS ARE INCORRECT. TAKES PILLS WHOLE IN APPLESAUCE. URINARY INCONTINENCE. RN DID ALLL CARES. PT TURNED ONTO SIDE WITH WEDGES BUT DOES NOT STAY ONTO SIDE AND CAN TURN SELF. SLEPT MOST OF THE NIGHT. NO ATTEMPTS TO GET OUT OF BED. CALL LIGHT AT SIDE. BED ALARM ON.
[2018-07-10 09:30] VITALS: BP 121/81
--- NOTE | 2018-07-10 11:51 | NUR ---
Nutrition: Pt admitted to Rehab with dc. H/o HTN, hypercholesterolemia, dementia. Wt: 155#, stable. Albumin 2.9. Regular diet. Per RN, pt ate well this morning although it took her a long time to finish the meal. If pt eats <50% of a meal, please provide Ensure Enlilve supplement for her. Will follow weekly. Mild risk at this time.
--- NOTE | 2018-07-10 14:25 | NUR ---
ASSUMED CARE AT 0730. ALERT TO SELF. HX OF TBI POST CONCUSSION FROM FALL AT HOME. WAS INCONTINENT LARGE AMT. URINE IN BED UPON MAKING 0730 ROUNDS. O.T. WORKING WITH PT. FOR ADLS. PT. IS MONTSERRATIAN BUT SPEAKS MICRONESIAN SPEAKS SOFTLY BUT INTELLIGIBLY. FEEDS SELF WITH SET UP NEEDS MEAT CUT UP NO DIFFICULTY WITH SWALLOWING TOOK MEDS WHOLE 2 AT A TIME. SITTING UP IN W/C AT BEDSIDE. AND 3 OTHER VISITORS HERE THIS A.M. APPETITE GOOD. WEARS PULLUPS TO BR X 2 TO VOID ABLE TO DO HYGEINE BUT NEEDS ASSIST TO ADJUST CLOTHING. SOME DIFFICULTY IN PROCESSING WHEN ASKED TO DO A TASK SUCH STAND UP ND GRAB BARS IN BR WITH TRANSFERS. DID AMBULATE IN HALLS WITH P.T. THIS AFTERNOON. ONCE STANDING DID WELL WITH AMBULATION. DID HAVE STATEMENT OF RT. KNEE PAIN.
--- NOTE | 2018-07-10 19:16 | NUR ---
PT. VOIDED X 2 IN TOILET THIS AFTERNOON LAST TIME BEING 1830. PT. HAS ISSUES OF SLOW PROCESSING WITH DIRECTIONS NEEDS STEP BY STEP HANDS ON INSTRUCTIONS. DAUGHTER ASHLEIGH HERE AND WAS GIVEN UPDATE ON PTS. DAY. PT. WAS NOT AGITATED OR COMBATIVE WITH THIS STAFF MEMBER.
[2018-07-10 19:29] VITALS: BP 106/71
--- NOTE | 2018-07-11 05:21 | NUR ---
ASSUMED CARE AT 1920. PT ALREADY IN BED. ALERT AND ORIENTED TO SELF. HAS DEMENTIA. BETTER MOOD TONIGHT. NOT COMBATIVE BUT WILL STILL RESIST TURNS AND CARES. HAD URINARY INCONTINENCE AND NURSING DID ALL CARES. PT ABLE TO TURN AND SHIFT SELF IN BED. DENIED ANY NEED FOR PAIN MEDS. TOOK PILLS WHOLE IN APPLESAUCE. BLE EDEMA. SLEPT BETTER. CALL LIGHT AT BEDSIDE BUT DOES NOT USE. NO ATTEMPTS TO GET OUT OF BED. BED ALARM ON.
[2018-07-11 08:00] VITALS: BP 129/59
[2018-07-11 13:37] LABS: URINE BILIRUBIN NEGATIVE (Negative); URINE BLOOD NEGATIVE (Negative); URINE CLARITY CLEAR; URINE COLOR YELLOW; URINE GLUCOSE-RANDOM NEGATIVE (Negative); URINE KETONES NEGATIVE (Negative); URINE NITRITE-REFLEX NEGATIVE (Negative); URINE PROTEIN NEGATIVE (Negative); URINE SPECIFIC GRAVITY 1.015 (1.005-1.030)
[2018-07-11 13:42] LABS: URINE LEUKOCYTES-REFLEX 3+ (Negative)
[2018-07-11 13:44] LABS: SQUAMOUS 0-3 Few /LPF (0-3); URINE RBC None Seen /HPF (0-2); URINE WBC-REFLEX 0-5 Rare /HPF (0-5)
[2018-07-11 13:45] LABS: BACTERIA-REFLEX >30 Many /HPF (None Seen); CASTS None Seen /LPF (None Seen); CRYSTALS None Seen /LPF (None Seen)
--- NOTE | 2018-07-11 14:00 | NUR ---
SW met with pt who was unable to communicate very well due to language barrier and mental status. SW met with pt and pt family, mainly pt son Walter, prior to admission to ARU. Pt lives at home with and pt family supportive. Pt family plans for pt to return home at dc with family care. Plan for pt to remain on rehab unit at least one more week with team to reteam and reassess pt length of stay during team conference next Monday. SW to continue to follow to assist with safe dc planning.
[2018-07-11 20:18] VITALS: BP 103/54
--- NOTE | 2018-07-11 20:45 | NUR ---
TRANSFERRED FROM WHEELCHAIR TO BED WITH MAX ASSIST OF TWO, GAITBELT, STAND, PIVOT. PATIENT HAD AN ANGRY/HATEFUL [id number] ON HER FACE AT FIRST ATTEMPTS TO TRANSFER. PATIENT HIT THE NEGOTIATOR SALES ON HER ARM. PATIENT CALMED DOWN SOME WITH DAUGHTER ASHLEIGH'S ASSISTANCE. TOOK MEDICATIONS CRUSHED WITH APPLESAUCE WITH SEVERAL ATTEMPTS. DAUGHTER HELPED ENCOURAGE PATIENT TO TAKE HER MEDICATIONS. DAUGHTER HELP FEED PATIENT SOME VANILLA ICE CREAM.
--- NOTE | 2018-07-12 04:57 | NUR ---
RESTED QUIETLY. NO INCONTINENCE SO FAR. TURNS SELF IN BED. RESIST CARES. WHEN CHECKING FOR INCONTINENCE PATIENT STRIKES OUT WITH ARMS AND TRIES TO KICK STAFF MEMBERS. HOURLY ROUNDING IN PROGRESS.
--- NOTE | 2018-07-12 11:44 | NUR ---
SW received call from pt dtr Norma (SW had left message after team conference introducing self and following up about team plan to reteam). Pt dtr Norma suggested that pt may not be able to hear very well and also to tell pt to speak Burmese if she is speaking in Thai. Pt dtr said that pt jair Watson is usually first contact and she believes he is pt DPOA. SW has had discussions with pt jair Watson as well. Pt family did not present any questions or concerns at this time and agree for plan of reassessing pt length of stay during team conference next Wednesday 07/18. SW to continue to follow to assist with safe dc planning.
--- NOTE | 2018-07-12 17:07 | NUR ---
PT IS RESISTANT AT TIMES AND CAN BE COOPERATIVE. PT ASSISTED TO STANDING AND AMBUALTES WITH GAITBELT AND WALKER WITH MUCH QUEING. PT IS INCONTINENT OF B+B AND OCCASIONALLY CAN ASK FOR BATHROOM.PT IS ASSISTED WITH FEEDING MEALS,OCCASIONALLY INITIATES FEEDING SELF. PT FORGETFULL AND IS FREQUENTLY MONITORED TO PREVENT FALLING. BED AND CHAIR ALARMS IN USE.FAMILY VISITS WITH PT NOW.
[2018-07-12 19:56] VITALS: BP 120/46
--- NOTE | 2018-07-13 03:13 | NUR ---
ASSUMED PT CARE AT 1930. ASSESSMENT COMPLETED CHARTED. PT RESTING IN BED AT THIS TIME. PT IS UNCOOPERATIVE AND CAN BE COMBATIVE AT TIMES. NO C/O PAIN OR DISCOMFORT. UNABLE TO MAKE NEEDS KNOWN. WILL CONTINUE TO MONITOR.
[2018-07-13 08:18] VITALS: BP 112/47
--- NOTE | 2018-07-13 15:59 | NUR ---
ASSUMMED CARE OF PT AT 0730, PT ALERT, CONFUSED, TRANSFERS WITH MOD ASSIST GB AND CUEING, BECOMES EASILY DISTRACTED WHEN DOING TASK, PT NEEDS ENCOURAGEMENT AND REMINDING TO KEEP FEEDING SELF, BUT DID FEED SELF MOST OF LUNCH, PT COMPLAINS OF SOME DISCOMFORT IN NECK, LIDOCAINE PATCH APPLIED, PT IS INCONTINENT BUT DOES VOID AT TIMES ON COMMODE OR TOILET, PT PLEASANT AND COOPERATIVE ALL SHIFT, PARTCIPATED IN ALL THERAPIES, UP IN CHAIR MOST OF SHIFT, HOURLY ROUNDING COMPLETED, PT REPOSTIONED EVERY 2 HOURS, WAFFLE CUSHION IN CHAIR, ASSESSMENT COMPLETE WILL CONTINUE TO MONITOR.
[2018-07-13 19:00] VITALS: BP 115/54
--- NOTE | 2018-07-14 05:34 | NUR ---
ASSUMED CARES AT 1920. ALERT AND ORIENTED TO SELF. WAS UNCOOPERATIVE AND RESISTED INCONTINENCE CHECKS DURING THE NIGHT. CAN GET EASILY AGITATED. OTHERWISE IS PLEASANT. TOOK PILLS WHOLE IN APPLESAUCE BUT DID TRY SPITTING OUT PILLS BEFORE FINALLY SWALLOWING. MOM GIVEN. NO INCONTINENCE AT THIS TIME. SLEPT MOST OF THE NIGHT. NO ATTEMPTS TO GET OUT OF BED. CALL LIGHT IN REACH AND BED ALARM ON.
[2018-07-14 07:00] VITALS: BP 122/69
--- NOTE | 2018-07-14 16:52 | NUR ---
ASSUMMED CARE OF PT AT 0730, PT ALERT, DISORIENTED, CALLING OUT FOR DAUGHTER ALL OF AM, SETTING OFF ALARMS FREQUENTLY TRYING TO GET UP BY HERSELF, GETS AGITATED WHEN STAFF TRIES TO DIRECT HER TO SIT DOWN, OR TURN AROUND ETC,PT HAS DIFFICULTY KEEPING ON TASK, PT TRANSFERS AT TIMES WITH SBA AND AT TIMES NEEDS STEADYING ASSIST. PT SITTING IN WHEELCHAIR AT NURSING STATION FOR PART OF MORNING, FAMILY CALLED AND MESSAGE LEFT FOR THEM TO COME IN AND SIT WITH MOM, FAMILY HERE THIS PM, AND PT MUCH CALMER, AND REMAINED CALM AFTER FAMILY LEFT, PT UP TO BATHROOM TO VOID, NEEDS CUEING TO EAT, BUT EATS WELL, NO BM THIS SHIFT, PARTICPATED IN THERAPIES, HOURLY ROUNDING COMPLETED, REPOSTIONED EVERY 2 HOURS, ASSESSMENT COMPLETE, WILL CONTINUE TO MONITOR.
[2018-07-14 20:00] VITALS: BP 115/73
--- NOTE | 2018-07-14 22:11 | NUR ---
ASSUMED CARES AT 1920. PT UP IN RECLINER. DAUGHTER AND SONS AT BEDSIDE. SONS ASKING IF PT ABLE TO BE D/C ON MONDAY 07/16. INFORMED FAMILY THAT UNDERSTOOD THAT PT WAS RETEAMED AND THAT ANY D/C NEEDS APPROVAL FROM DR LIN AND TEAM. TOLD THEM WOULD PASS QUESTION TO APPROPRIATE PERSON. FAMILY SAYS THAT THIS IS HER BASELINE AND THAT SHE IS ACTUALLY DOING BETTER THAN BEFORE HOSPITALIZATION. PT VERY AGRESSIVE, AND EASILY AGITATED AT SEEING NURSING STAFF. WOULD GET COMBATIVE. PT WAS ONLY COOPERATIVE WHEN FAMILY ASSISTED. DAUGHTER HELPED ENCOURAGE PT TO WALK TO BATHROOM, CHANGE CLOTHES AND TAKE MEDS. PILLS WERE CRUSHED IN APPLESAUCE. PT RESTING IN BED. CALL LIGHT IN REACH AND BED ALARM ON.
--- NOTE | 2018-07-15 06:36 | NUR ---
PT SLEPT WELL MOST OF THE NIGHT. BUT STILL NOT IN GOOD MOOD. DID NOT WANT STAFF TO AWAKEN. PUSHED STAFF AWAY. PILLS CRUSHED IN APPLESAUCE AND TOOK COAXING TO GIVE. PT REFUSED TO BE TOILETED. CALL LIGHT IN REACH AND BED ALARM ON.
[2018-07-15 09:15] VITALS: BP 135/55
--- NOTE | 2018-07-15 15:32 | NUR ---
PT UP TO W/C AND WAS INC OF BLADDER X1 THIS AM AND THEN AMBULATED TO BATHROOM AND HAD SMALL SOFT LIGHT BROWN BM THIS AFTERNOON. PRN FOR HEADACH GIVEN THIS AM CRUSHED IN APPLE SAUCE WITH GOOD EFFECT. PT HAS FED SELF IN ROOM WHERE LEAST DISTRACTED. CHAIR ALARM IN USE AND PT MONITORED AT DESK. PT REMAINS CONFUSED AT TIMES AND HAS BEEN COOPERATIVE TODAY.HOURLY ROUNDING CONTINUES.
[2018-07-15 20:00] VITALS: BP 125/62
--- NOTE | 2018-07-16 05:06 | NUR ---
ASSUMED CARES AT 1920. ALERT AND ORIENTED TO SELF. NOT COMBATIVE TONIGHT ALTHOUGH STILL RESISTS SOME CARES. DOES NOT LIKE TO BE BOTHERED. PT IS QUIET BUT WHEN SHE DOES REPLY, LATELY HER ANSWERS HAVE BEEN MORE CLEAR AND DIRECT. TOOK PILLS CRUSHED IN ICE CREAM. PT GOT UP TO BATHROOM X 1. VOIDED AND HAD SMALL BM. RN ASSISTED WITH CARES. MOD ASSIST WITH GAIT BELT AND WALKER. NEEDS CUEING WITH STEERING AND PROPER WALKER PLACEMENT. PT TURNED SELF IN BED. SLEPT WELL. CALL LIGHT IN REACH AND BED ALARM ON.
[2018-07-16 08:00] VITALS: BP 110/51
[2018-07-16 09:10] VITALS: BP 110/51
--- NOTE | 2018-07-16 13:43 | NUR ---
AM ASSESSMENT AND VITAL SIGNS COMPLETED DOCUMENTED. PT HAS BEEN CALM, VERY SOFT SPOKEN. FALL PRECAUTIONS AND HOURLY ROUNDING IN PLACE.
--- NOTE | 2018-07-16 17:07 | NUR ---
PT REMAINS CALM AND COOPERATIVE, NO COMBATIVE BEHAVIOR THIS SHIFT. PT IS ALERT AND RECOGNIZES HER FAMILY BUT IS OTHERWISE CONFUSED AND FORGETFUL. NO ACUTE DISTRESS THIS SHIFT.
--- NOTE | 2018-07-16 18:13 | NUR ---
MARIA DEL ROSARIO recieved call from insurance claim auditor stating that the medical photographer of insurance is only going to approve covering inpt rehab through 07/18 and expect pt to dc 07/19; medical photographer feels pt is not making enough progress and pt would need SNF. If Dr Martinez would like to complete a peer to peer, number is [phone] option 4 and that is to be initiated by noon on 07/18. If not, MARIA DEL ROSARIO will assist in safe dc planning and possible SNF placement.
[2018-07-16 19:58] VITALS: BP 112/43
--- NOTE | 2018-07-16 23:54 | NUR ---
ASSUMED CARE AT 1930. PATIENT ALREADY IN BED. GRANDDAUGHTER SPENDING THE NIGHT ON A COT. TAKES PILLS CRUSHED IN ICE CREAM, WITH ENCOUARGEMENT. UNABLE TO RATE PAIN, BUT CAN POINT TO THE AREA. NOT COMBATIVE TONIGHT. HOURLY ROUNDS CONTINUE. BED ALARM ON. CALL LITE IN REACH.
--- NOTE | 2018-07-17 05:30 | NUR ---
SLEPT WELL. NO C/O PAIN. GRANDDAUGHTER SPENT THE NIGHT. TURNS SELF. HOURLY ROUNDS CONTINUE. BED ALARM ON. CALL LITE IN REACH.
[2018-07-17 07:39] VITALS: BP 142/52
--- NOTE | 2018-07-17 16:42 | NUR ---
ASSUMMED CARE OF PT AT 0730, PT ALERT, CONFUSED, ASKING FOR DAUGHTER, WANTS TO GO HOME, TRANSFERS WITH ASSIST OF 1 GB, WALKER STEADYING, PT COMPLAINS OF HEADACHE, MEDICATED X 1 WITH RELIEF, PT IMPULSIVE AT TIMES, SITTING IN WHEELCHAIR AT NURSES STATION TO CALM PT, VOIDED PER TOILET AND INCONTINENT, TAKING FOOD AND FLUIDS WITH ENCOURAGEMENT, GETS EASILY DISTRACTED NEEDS CUEING TO STAY ON TASK, BATHING, GROOMING DRESSING DONE WITH ASSIST, HOURLY ROUNDING COMPLETED, ASSESSMENT COMPLETE, WILL CONTINUE TO MONITOR.
[2018-07-17 20:00] VITALS: BP 117/63
--- NOTE | 2018-07-18 05:25 | NUR ---
ASSUMED PT CARE AT 1930. PT ALERT AND ORIENTED TO SELF, AND SON AT BEDSIDE. PT NOT COMBATIVE PREVIOUSLY BUT RESISTS SOME CARES. TRANSFERRED FROM WHEELCHAIR TO BED WITH MOD ASSIST, GAIT BELT AND WALKER. TAKES PILLS CRUSHED IN APPLESAUCE. PT ALTERNATIVELY WELL SPOKEN THEN UNCOMMUNICATIVE. PT TURNS SELF IN BED. BED ALARM ON FOR SAFETY. CALL LIGHT WITHIN REACH. SLEPT WELL OVERNIGHT. HOURLY ROUNDING IN PROGRESS, WILL CONTINUE TO MONITOR.
[2018-07-18 08:30] VITALS: BP 106/52
--- NOTE | 2018-07-18 13:02 | NUR ---
DISCHARGE PLANNE SPOKE TO TIHEN WITH [facility] ([facility]) TO INFORM OF THE NEED TO ARRANGE A [id number]. THIEN INFORMS THAT DR. REYES IS AVAILABLE TO DO [id number] BETWEEN [phone] LIN TO COMPLETE. D/C JUNIOR ARCHITECT INFORMED DR. LIN OF THE ABOVE INFO. DR. ILN IN AGREEMENT. CM WILL REMAIN AVIALABLE TO ASSIST AND FOLLOW NEEDED.
--- NOTE | 2018-07-18 15:21 | NUR ---
TEAM CONFERENCE MEETING HELD TODAY. INFORMED PATIENT AND SON JESSE OF MEETIGN AND THAT [facility] INSURANCE APPROVED PATIENT TO REMAIN ON REHAB THRU 07/25/18 WITH D/C AFTER TEAM CONFRENCE. PATIENT AND SON IN AGREEMENT. PATIENT'S SON INFORMS THAT THE PLAN REMAINS TO HAVE THE PATIENT RETURN HOME WITH CARES PROVIDED BY HIS SISTER AT D/C. CM WILL REMAIN AVIALABLE TO ASSIST AND FOLLOW NEEDED. PATIENT PROGRESSING TOWARDS GOALS, BUT BARRIERS ARE DECREASED ATENTION TO TASK, DECREASED MOTIVATION, FETIGUE, AND COMPREHENSION.
[2018-07-18 20:00] VITALS: BP 111/46
--- NOTE | 2018-07-19 05:03 | NUR ---
ASSUMED PT CARE AT 1930. PT ALERT AND ORIENTED TO SELF, AT BEDSIDE. PT TRANSFERRED FROM WHEELCHAIR TO BED WITH MOD ASSIST, GAIT BELT AND WLAKER. PT MORE COMBATIVE THAN LAST NIGHT, RESISTANT TO CARES. PT TOOK PILLS CRUSHED IN ICE CREAM. PT TURNS SELF IN BED. BED ALARM ON FOR SAFETY. CALL LIGHT WITHIN REACH. SLEPT WELL OVERNIGHT. HOURLY ROUNDING IN PROGRESS, WILL CONTINUE TO MONITOR.
[2018-07-19 08:00] VITALS: BP 121/67
--- NOTE | 2018-07-19 14:32 | NUR ---
ASSUMED CARE AT 0730. ALERT TO SELF HX OF TBI AND DEMENTIA. PARTICIPATING IN THERAPIES. TRANSFERS WITH 1 ASSIST G BELT WALKER AND CUEING AMBULATED TO TOILET TO VOID ABLE TO DO HYGEINE AND CLOTHING ADJUSTMENTS WITH CUEING. DENIES PAIN OR CONCERNS. PARTICIPATING IN THERAPIES THROUGHOUT THE DAY. BED CHAIR ALARM FOR PT. SAFETY. WEARS PULLUPS FOR OCCASSIONAL INCONTINENCE URINE. BED CHAIR ALARM FOR PT. SAFETY. FEEDS SELF AND USUALLY TAKES MEDS WITHOUT DIFFICULTY THIS A.M. HAD TO BE ENCOURAGED TO DO SO.
[2018-07-19 22:14] VITALS: BP 100/43
--- NOTE | 2018-07-20 05:02 | NUR ---
ASSUMED CARES AT 1920. ALERT AND ORIENTED TO SELF. GETS EASILY AGITATED. NEEDS MUCH ENCOURAGING TO RESPOND TO QUESTIONS. TOOK MEDS CRUSHED IN ICE CREAM AFTER MUCH COAXING. WAS RESISTED TO ANYTHING THAT RN ASKED HER TO DO. REFUSED TO CHANGED OUT OF CLOTHES. LIKES TO SLEEP ON SIDE. SLEPT WELL MOST OF THE NIGHT. CALL LIGHT IN REACH. BED ALARM ON.
[2018-07-20 07:30] VITALS: BP 115/52
--- NOTE | 2018-07-20 09:17 | NUR ---
ASSUMED CARE AT 0730. HX OF TBI AND DEMENTIA. PT. VERY SLEEPY THIS A.M. REFUSING TO WAKE UP AND PARTICIPATE WITH O.T. AT 0730. ALLOWED TO REST UNTIL 0830. STILL DIDNT WISH TO GET UP WITH ENCOURAGEMENT O.T. AND STAFF NURSE TRANSFERRED HER TO RECLINER PLACED BREAKFAST IN FRONT OF PT. AND SET UP ENCOURAGED HER TO EAT AND WAKE UP. CHAIR ALARM IN PLACE. VSWNL. NO COMPLAINTS OF PAIN.
--- NOTE | 2018-07-20 14:29 | NUR ---
PT. HAS PARTICIPATED IN THERAPIES THIS AFTERNOON. CHAIR AND BED ALARM ON FOR PT. SAFETY. APPETITE FAIR AT LUNCH FED SELF DID TAKE MORNING MEDS FOR THIS FOOD PROCESSING CHEMIST. DENIES PAIN OR CONCERNS. HOURLY ROUNDING COMPLETED.
[2018-07-20 20:03] VITALS: BP 109/63
--- NOTE | 2018-07-21 05:37 | NUR ---
ASSUMED CARES AT 1920. ALERT AND ORIENTED TO SELF. DAUGHTER ASSISTED GETTING PT READY FOR BED. PT STILL CONTINUES TO BE RESISTANT TO CARES AND NEEDS MUCH COAXING TO TAKE PILLS. PILLS GIVEN CRUSHED IN PUDDING. INFORMED DAUGHTER THAT PT HAS NOT HAD BM IN SEVERAL DAYS AND MAY HAVE TO BE GIVEN SUPPOSITORY. DAUGHTER AGREEABLE. MOD ASSIST WITH GAIT BELT AND WALKER. VERY SLOW WITH MUCH CUEING NEEDED WITH TRANSFERS. SLEPT WELL. CALL LIGHT IN REACH AND BED ALARM ON.
[2018-07-21 09:00] VITALS: BP 125/64
--- NOTE | 2018-07-21 16:29 | NUR ---
PT HAS BEEN UP TO RECLINER AND PARTICIPATED WITH THERAPIES. PT IS MONITORED Q 1 HOUR AND PRN WITH BED ALARM AND CHAIR ALARMS IN USE. PT WEARS BREIF BUT HAS BEEN DRY TODAY AND TAKEN TO BATHROOM AND VOIDED.PT HAS ONLY SMEAR OF BM THIS AM AFTER SUPPOSITORY. PT AMBULATES WITH WALKER AND GAITBELT AND COAXING. PT IS FORGETFULL,BUT PLESANT.
[2018-07-21 20:00] VITALS: BP 138/59
--- NOTE | 2018-07-22 05:15 | NUR ---
ASSUMED PT CARE AT 1930. PT SITTING UP IN RECLINER AT SHIFT CHANGE VISITING WITH . PT TRANSFERRED TO BED WITH MOD ASSIST, GAITBELT AND WALKER. PT TOOK PILLS CRUSHED IN VANILLA PUDDING. OVERALL MORE PLEASANT AND COOPERATIVE THIS SHIFT. CALL LIGHT WITHIN REACH. BED ALARM ON FOR SAFETY. HOURLY ROUNDING IN PROGRESS, WILL CONTINUE TO MONITOR.
[2018-07-22 07:47] VITALS: BP 125/64
--- NOTE | 2018-07-22 17:13 | NUR ---
PATIENT REMAINS AT BASELINE ORIENTATION. IMPULSIVE AT TIMES. BED/CHAIR ALARM IN USE. TRANSFERS WITH ASSIST OF 1,GAITBELT, AND WALKER. SMALL,HARD BM THIS SHIFT. MIRILAX,COLACE AND SENNA GIVEN. OFFERED SUPPOSITORY BUT PATIENT REFUSED FOR NOW. FAMILY VISITED OFF AND ON THIS SHIFT. INCONTINENT OF URINE X2. VOIDED IN TOILET X3. CALL LIGHT WITHIN REACH. WILL CONTINUE TO MONITOR.
[2018-07-22 20:00] VITALS: BP 119/86
--- NOTE | 2018-07-23 05:46 | NUR ---
ASSUMED PT CARE AT 1930. PT SITTING UP IN RECLINER AT SHIFT CHANGE VISITING WITH . PT TRANSFERRED TO BED WITH MOD ASSIST, GAIT BELT AND WALKER. PT TOOK PILLS CRUSHED IN APPLESAUCE. PT MORE CONFUSED THAN LAST NIGHT, NOT WANTING TO GO TO SLEEP. TOOK VANILLA ICE CREAM FOR BEDTIME SNACK. BED ALARM ON FOR SAFETY, PT TRIED TO GET OUT OF BED ONCE, REORIENTED AND BACK TO BED. CALL LIGHT WITHIN REACH. HOURLY ROUNDING IN PROGRESS, WILL CONTINUE TO MONITOR.
[2018-07-23 08:37] VITALS: BP 137/63
--- NOTE | 2018-07-23 18:18 | NUR ---
PT ALERT TO SELF. NO FACIAL GRIMACING NOTED. UP TO TOILET X 3. AMBULATED WITH WALKER AND GAIT BELT WITH ASSIST X 1. REFUSED MIRALAX IN MORNING. ATE ICE CREAM FOR SNACK IN AFTERNOON. ONLY EATS A FEW BITES DURING MEALS. VS STABLE. PARTICIPATED WITH THERAPIES IN AFTERNOON. BED/CHAIR ALARMS IN PLACE. HOURLY ROUNDS MAINTAINED.
[2018-07-23 20:00] VITALS: BP 109/60
--- NOTE | 2018-07-24 05:20 | NUR ---
ASSUMED CARES AT 1920. PT ALREADY IN BED. ALERT AND ORIENTED TO SELF. EARLY IN NIGHT PT IRRITABLE AND RESISTIVE TO CARES. REFUSED TO CHANGE CLOTHES FOR STAFF. PUSHING STAFF AWAY. NEEDED MUCH COAXING TO TAKE MEDS. PILLS WERE CRUSHED IN PUDDING. REFUSED ANY OFFER OF SNACK OF DRINK. SLEPT WELL OTHERWISE. CALL LIGHT IN REACH AND BED ALARM ON.
[2018-07-24 08:39] VITALS: BP 132/67
--- NOTE | 2018-07-24 15:50 | NUR ---
ASSUMED CARE AT 0730. ALERT TO SELF. HX OF DEMENTIA AND TBI FROM FALL AT HOME. WAS BELLIGERENT WITH O.T. THIS EARLY A.M. DIDNT WANT TO GET OUT OF BED PT. RESTED A WHILE LONGER AND NURSING STAFF ENCOURAGED HER TO GET UP BUT WITHOUT LUCK. P.T. DID MANAGE TO GET HER UP AND SET HER IN RECLINER TO EAT BREAKFAST. APPETITE FAIRLY GOOD AT BREAKFAST MEAL. HAD TO BE ENCOURAGED TO PARTICIPATE IN O.T. LATER IN A.M. TOOK ONLY HALF HER A.M. MEDS. REFUSED OTHERS. WEARS PULL UPS FOR OCCASSIONAL INCONTINENCE. VOIDED AROUND 1430 AND HAD SMALL BM HARD ROUND BROWN BALLS. PT. DIGS STOOL OUT WITH WIPES AND HANDS. FAMILY HERE VISITING MID AFTERNOON. BED CHAIR ALARM FOR PT. SAFETY.
[2018-07-24 20:00] VITALS: BP 114/63
--- NOTE | 2018-07-24 23:01 | NUR ---
ASSUMED CARE AT 1930. PATIENT RESTING IN BED. AWAKENED FOR MEDS AND ASSESSMENT. SHE INITIALLY REFUSED TO HAVE NURSING ASSIST WITH SHOE REMOVAL, BUT ABOUT 1999 THIS NURSE FOUND THE SHOES IN THE BED BUT OFF OF HER FEET, APPARENTLY REMOVED PER PATIENT. REFUSES TO LET NURSE GIVE LOVENOX. DID TAKE PILLS CRUSHED IN ICE CREAM, BUT ONLY ONE BITE, WHICH FORTUNATELY DID CONTAIN ALL OF THE CRUSHED MEDS, WITH MUCH ENCOURAGEMENT. DRINKS THIN LIQUIDS WITHOUT DIFF. NO C/O PAIN. REFUSES TO ALLOW NURSE TO ASSIST WITH TURNS. REFUSES HEELS OFF BED. HOURLY ROUNDS CONTINUE. BED ALARM ON. CALL LITE IN REACH.
--- NOTE | 2018-07-25 05:33 | NUR ---
SLEPT ALL NIGHT. SLEPT IN CLOTHES, REFUSED TO CHANGE INTO GOWN. NO APPARENT DISTRESS. HOURLY ROUNDS CONTINUE. BED ALARM ON. CALL LITE IN REACH.
[2018-07-25 08:49] VITALS: BP 98/50
--- NOTE | 2018-07-25 15:36 | NUR ---
MARIA DEL ROSARIO and Dr Martinez met with pt to review team conference summary and plan for pt to dc home with family tomorrow, and team recommending family training. Pt was not overly communicative and said something in Somoan; SW asked for word in Divehi but pt did not say anything. MARIA DEL ROSARIO and Dr Martinez discussed SW to speak with pt family and pt said okay. MARIA DEL ROSARIO called and spoke with pt son Walter and reviewed team conference summary and plan for pt to dc home tomorrow with services and resource/referral for [facility]. MARIA DEL ROSARIO scheduled family training with pt son and asked for pt and pt dtr to be present as well for Tomorrow, 07/26 at 1:00 pm. MARIA DEL ROSARIO to continue to follow to assist with finalizing safe dc plan.
--- NOTE | 2018-07-25 16:47 | NUR ---
ASSUMMED CARE OF PT AT 0730, PT ALERT, FORGETFUL, PT TRANSFERS AT TIMES WITH SBA AND OTHER TIMES ASSIST OF 2 DEPENDING IF SHE WANTS TO PARTICIPATE IN ACTIVITY OR NOT, TAKING FOOD AND FLUIDS WITH ENCOURAGEMENT, VOID PER TOILET AND INCONTINENT IN BRIEF AT TIMES, PT COMPLAINS OF BACK PAIN AND HEADACHE, MEDICATED X 1 FOR PAIN, PARTICIPATED IN ALL THERAPIES, HOURLY ROUNDING COMPELTED ASSESSMENT COMPLETE, WILL COTNINUE TO MONITOR.
--- NOTE | 2018-07-25 19:45 | NUR ---
SITTING UP IN RECLINER WITH LEGS ELEVATED. ORIENTED TO NAME ONLY. PATIENT ATTEMPTED TO HIT STAFF WITH GAITBELT. SPIT OUT COLACE. DID TAKE OTHER MEDICATIONS CRUSHED WITH APPLESAUCE. TRANSFERRING PATIENT FROM RECLINER TO THE BED REQUIRED MOD ASSIST OF TWO DUE TO PATIENT'S COMBATIVENESS. PATIENT ALSO REFUSED TO USE THE WALKER. PATIENT KICKED AT THE WALKER WHEN IT WAS PLACED IN FRONT OF HER.
[2018-07-25 20:20] VITALS: BP 106/57
[2018-07-25 22:28] VITALS: BP 106/57
--- NOTE | 2018-07-26 05:01 | NUR ---
RESTED QUIETLY. NO COMPLAINTS VOICED. HOURLY ROUNDING IN PROGRESS. PATIENT TO BE DISCHARGED TO HOME TO DAY AFTER FAMILY TRAINING.
[2018-07-26 08:00] VITALS: BP 117/67
[2018-07-26 11:45] VITALS: BP 106/57
--- NOTE | 2018-07-26 11:46 | NUR ---
Pt to dc home with family care today after family training at 1 pm. MARIA DEL ROSARIO faxed referral and orders to family preference of [facility] and spoke with Christi who accepted referral. MARIA DEL ROSARIO left message with pt son to confirm dc plans for today and encouraged for him, pt , and pt dtr; all involved in providing pt care to be present for family training. Pt family to provide pt ride home. Life alert recommended.
--- NOTE | 2018-07-26 16:28 | NUR ---
ASSUMMED CARE OF PT AT 0730, PT ALERT, TRANSFERS WITH ENCOURAGEMENT AND ASSIST OF 1, GB WALKER THIS SHIFT, AMBULATES TO BATHROOM TO VOID, NO BM THIS SHIFT, TAKING FOOD AND FLUIDS, HAD LUNCH IN DININGROOM, PT CONFUSED AND DOES TRY TO GET UP FREQUENTLY WITHOUT CALLING FOR HELP, PT IN WHEELCHAIR SITTING AT NURSING STATION FOR SAFETY, PARTICIPATED IN ALL THERAPIES, PT DENIED PAIN, ORDERS OBTAINED FOR DISCHARGE, DISCHARGE INSTRUCTIONS GIVEN TO DAUGHTER, SON AND PT, DISCUSSED FOLLOW UP APPTS, WHEN TO CALL PHYSICIAN, MEDICATIONS, QUESTIONS ANSWERED, NURSE WILL MAIL LIFE LINK INFORMATION TO PT, PT DISCHARGE WITH BELONGING PER WHEELCHAIR TO MAIN ENTRANCE WITH KIMBERLYN.
--- NOTE | 2018-08-01 16:23 | D ---
[facility] [address] [place] [address] DISCHARGE SUMMARY Name: BRENTLACEYNAYELY Room: [address] IN M.R.#: [id number] Admission: 07/09/18 Attend Phys: Amanda Martinez DO Discharge: 07/26/18 Date of : 39 Report #: [id number] THIS REPORT FOR: //name// CC: Amanda Morelandreyes Carrizales DATE OF SERVICE: 07/26/2018 DISCHARGE DIAGNOSES: Traumatic brain injury, closed head injury. HOSPITAL COURSE: The patient is status post fall from standing height in her own home. She was down for some time. She was diagnosed with a traumatic brain injury with postconcussive syndrome and altered mental status, elevated troponin and rhabdomyolysis. She did well during her rehab stay and did discharge to the home setting today after family training with son, daughter and . She will have home health, PT, OT and nursing. Followup with primary care physician within 1 week, Neurology within 2-4 weeks. Notifications for physician were given. She will maintain the same diet. She will use fall precautions 13/02 supervision for safety and insight as well as strength and endurance, front-wheeled walker for ambulation. MEDICATIONS: Reviewed, reconciled by myself and are available in the MAR. PHYSICAL EXAMINATION: GENERAL: Alert, oriented, in no apparent distress. VITAL SIGNS: Reviewed and are stable. HEENT: Head atraumatic, normocephalic. Pupils equal, round, reactive. ABDOMEN: Soft, nontender, nondistended. NEUROLOGIC: Cranial nerves 2-12 are grossly intact with no focal neuro deficits, 5/5 strength in bilateral upper and lower extremities. SKIN: Warm and dry. No rashes or lesions noted. <ELECTRONICALLY SIGNED> By: Amanda Martinez DO 08/01/18 1623 1646 [id number] Martinez DO /nt
== END 2018-07-26 15:00 | disposition home health service (06) | DRG 89 ==
LOC: M.REH 11:33
PROVIDERS: ADMIT Physical Medicine & Rehabilitation
DX: S06.0X0A Concussion without loss of consciousness, initial encounter (principal); M62.82 Rhabdomyolysis; I10 Essential (primary) hypertension; E78.00 Pure hypercholesterolemia, unspecified; E03.9 Hypothyroidism, unspecified; W18.39XA Other fall on same level, initial encounter; Z95.0 Presence of cardiac pacemaker; Z79.899 Other long term (current) drug therapy; Y93.89 Activity, other specified; Y92.89 Other specified places as the place of occurrence of the external cause; Y99.8 Other external cause status; R41.82 Altered mental status, unspecified

== ENCOUNTER 2019-05-15 18:29 | Inpatient (IN) | payer OTHER ==
[~2019-05-15] VITALS: Ht 162.6 cm; Wt 54.3 kg
[~2019-05-15 18:29] MED LIST changes: +ENOXAPARIN30 MG/0.1 SUBQ
[2019-05-15 18:35] VITALS: BP 127/90
[2019-05-15 19:08] LABS: ABSOLUTE LYMPHOCYTES 0.5 thou/uL (0.8-5.3); ABSOLUTE MONOCYTES 0.4 thou/uL (0.0-1.2); ABSOLUTE NEUTROPHILS 5.5 thou/uL (1.6-8.1); BASOPHILS 0.6 %; EOSINOPHILS 0.3 %; HEMATOCRIT 34.6 % (37.0-47.0); HEMOGLOBIN 11.9 gm/dL (12.0-15.0); LYMPHOCYTES 7.9 %; MCH 35.4 pg (26.0-34.0); MCHC 34.4 g/dL (28.0-37.0); MCV 102.9 fL (80.0-100.0); MONOCYTES 6.5 %; MPV 8.3 fl. (7.2-11.1); NUCLEATED RBCS 0 /100WBC; PLATELET COUNT* 161 thou/uL (150-400); POLYS 84.7 %; RBC 3.36 mil/uL (4.20-5.00); WBC 6.5 thou/uL (4.0-11.0)
[2019-05-15 19:19] LABS: CALCIUM 9.5 mg/dL (8.5-10.1); POTASSIUM 4.7 mmol/L (3.5-5.1)
[2019-05-15 19:20] LABS: APTT 26.6 Seconds (25.0-31.3); INR 1.1
[2019-05-15 19:24] LABS: ALBUMIN 3.9 g/dL (3.4-5.0); TOTAL BILIRUBIN 0.6 mg/dL (<0.1-1.0); TOTAL PROTEIN 7.5 g/dL (6.4-8.2)
[2019-05-15 21:10] LABS: URINE BILIRUBIN NEGATIVE (Negative); URINE BLOOD NEGATIVE (Negative); URINE CLARITY CLEAR; URINE COLOR YELLOW; URINE GLUCOSE-RANDOM NEGATIVE (Negative); URINE KETONES NEGATIVE (Negative); URINE NITRITE-REFLEX NEGATIVE (Negative); URINE PROTEIN NEGATIVE (Negative); URINE UROBILINOGEN 0.2 E.U./dl (0.2-1.0)
[2019-05-15 21:11] LABS: URINE LEUKOCYTES-REFLEX 3+ (Negative)
[2019-05-15 21:28] LABS: SQUAMOUS >10 Many /LPF (0-3)
[2019-05-15 21:29] LABS: HYALINE CASTS >10 Many /LPF (None Seen); MUCUS None Seen strn/LPF (None Seen)
[2019-05-15 21:30] LABS: BACTERIA-REFLEX 1-9 Few /HPF (None Seen); URINE RBC 0-2 Rare /HPF (0-2); URINE WBC-REFLEX >25 Many /HPF (0-5)
[2019-05-15 21:31] LABS: AMORPHOUS URATES Few /LPF (None Seen)
[2019-05-16] VITALS (31 sets, daily range): BP systolic 57–111; BP diastolic 34–92
--- NOTE | 2019-05-16 02:16 | NUR ---
PATIENT IS RESTING COMFORTABLY AT THIS TIME. VSS ON 2L 02 VIA NASAL CANNULA. PATIENT HAS BEEN MOSTLY NON VERBAL, ALTHOUGH IT APPEARS SHE HAS EXPRESSIVE APHASIA AND VERY DIFFICULT TO UNDERSTAND. OAEKS TO DEPENDENT DRAINAGE WITH YELLOW URINE OUTPUT. NURSING TO CONTINUE MONITORING.
--- NOTE | 2019-05-16 07:01 | NUR ---
PATIENT HAS SLEPT WELL THROUGHOUT THE NIGHT. VSS ON 2L 02 VIA NASAL CANNULA. ORTHO HERE THIS AM TO SEE PATIENT. ORTHO TO CALL FAMILY THIS AM. OAKES TO DEPENDENT DRAINAGE WITH YELLOW URINE OUTPUT. IV IN LEFT FOREARM-SL. REPORT GIVEN TO DAY ER NURSE. NURSING TO CONTINUE MONITORING.
--- NOTE | 2019-05-16 07:16 | NUR ---
THIS NURSE RECEIVED REPORT FROM TIM RANDOLPH. THIS NURSE TO ASSUME PT CARE AT THIS TIME.
--- NOTE | 2019-05-16 11:04 | NUR ---
REPORT GIVEN TO TIM NELSON WHO IS TO ASSUME PT CARE AT THIS TIME. PT TO GO TO SURGERY HOLDING AREA. FAMILY MADE AWARE. PT BELONGINGS PACKED AND TAKEN TO SURGERY WITH PT.
--- NOTE | 2019-05-16 16:54 | EKG ---
[place] [address] ELECTROCARDIOGRAM REPORT Name: NAYELY JAQUEZ Room: [facility]9 ADM IN M.R.#: [id number] Admission: 05/15/19 Attend Phys: Wilbert Dias Discharge: Date of : 39 Report #: [id number] THIS REPORT FOR: //name// [facility] ED Test Date: 2019-05-15 Test Time: 18:43:41 Pat Name: NAYELY JAQUEZ Department: Room: [facility] Gender: F Tie In Hand: EV : 1935 Requested By: Mike Garcia Order Number: [id number] MD: Varinder Maurer Measurements Intervals [place] Rate: 147 P: [place]: QRS: 32 QRSD: 111 T: QT: 303 QTc: 474 Interpretive Statements sinus rhythm marked baseline artifact Electronically Signed On 05-16-2019 16:54:17 CDT by Varinder Maurer [email or web address] <ELECTRONICALLY SIGNED> By: Varinder Maurer MD, [facility] 05/16/19 1654 1843 1843 Varinder Maurer MD, FACC /EPI
--- NOTE | 2019-05-16 20:03 | NUR ---
I TOOK REPORT ON THIS PATIENT FROM JADON IN THE PACU. WE TUCKED HER IN AND ESTABLISHED ALL OF HER MONITORS, ETC. BIPAP WAS ON STANDBY BUT WAS TURNED BACK ON BY RT AT SHIFT CHANGE. REPORT WAS THEN PASSED ON TO SHAYY. OAKES IS IN PLACE, IV FLUIDS ARE INFUSING.
[2019-05-17] VITALS (70 sets, daily range): BP systolic 59–123; BP diastolic 30–88
[2019-05-17 04:38] LABS: HEMATOCRIT 31.3 % (37.0-47.0); HEMOGLOBIN 10.4 gm/dL (12.0-15.0)
--- NOTE | 2019-05-17 06:12 | NUR ---
ASSUMED PATIENT CARE AT 1900. PATIENT HAS BEEN ON BIPAP FOR DURATION OF THE SHIFT, 02 SAT IN UPPER 90'S. ABDUCTOR PILLOW IN PLACE PER PHYSICIAN ORDERS FOR POST OP TREATMENT. PATIENT BLOOD PRESSURES DROPPING AND REMAINED HYPOTENSIVE FOR 2-3 HOURS DURING SHIFT, PHYSICIANS CALLED AND ORDERS RECEIVED FROM DR FITCH TO START DOPAMINE GTT. DOPAMINE GTT RUNNING AT 9 MCG/KG/MIN, BP MAP STAYING ABOVE 60. DRESSING ON SURGICAL INCISION IN PLACE, NO SIGNS OF BLEEDING OR HEMORRHAGE. DRESSING DRY AND INTACT. MORNING LABS SHOW NO SIGN OF INTERNAL BLEEDING. ICE PACK ON SURGICAL SITE PER ORTHO SURGEON'S ORDERS. WCTM.
--- NOTE | 2019-05-17 10:30 | NUR ---
PT.ON BIPAP. DAUGHTER,ASHLEIGH IN ROOM. CM SPOKE WITH HER. SHE SAID PT.LIVES AT HOME WITH . HE IS RECOVERING FROM A STROKE. HE HAS NO DEMENTIA. ASHLEIGH LIVES NEXT DOOR. SHE SAID SHE COMES OVER TO HELP ALOT. MOTHER NEEDS ASSIST DRESSING,BATHING, GOING TO THE RESTROOM,AND JUST RECENTLY HAD TO START BEING FED. USUALLY HAS A GOOD APPETITE AND ABLE TO SWALLOW PILLS WITHOUT PROBLEMS. SHE WAS ON SERVICE WITH [facility] PRIOR TO COMING TO THE HOSPITAL. DISCUSSED SNF VS ACUTE REHAB/ ALSO DISCUSSED HOSPICE. YUE CALLED [facility] AND DISCUSSED WITH STAFF. HOSPICE DX WAS HEART DISEASE.
[2019-05-17 12:56] LABS: ALBUMIN 3.4 g/dL (3.4-5.0); CALCIUM 9.2 mg/dL (8.5-10.1); POTASSIUM 5.3 mmol/L (3.5-5.1); TOTAL BILIRUBIN 0.3 mg/dL (<0.1-1.0); TOTAL PROTEIN 6.4 g/dL (6.4-8.2)
--- NOTE | 2019-05-17 13:51 | 2DMMODE ---
[place] [address] 2 D/M-MODE ECHOCARDIOGRAM Name: NAYELY JAQUEZ Room: [address] ADM IN R#: [id number] Admission: 05/15/19 Attend Phys: Cheryl Liu Discharge: Date of : 39 Date of Service: 05/17/19 1351 Report #: [id number] THIS REPORT FOR: //name// APPROVED REPORT Study performed: 05/17/2019 09:40:53 EXAM: Comprehensive 2D, Doppler, and color-flow Echocardiogram Patient Location: In-Patient Room #: [facility] Status: routine BSA: 1.65 HR: 86 bpm BP: 100/43 mmHg Rhythm: NSR Other Information Study Quality: Good Indications BP 2D Dimensions IVSd: 10.55 (7-11mm) LVOT Diam: 20.25 (18-24mm) LVDd: 41.04 mm PWd: 10.96 (7-11mm) LVDs: 23.72 (25-40mm) Aortic Root: 36.03 mm Volumes Left Atrial Volume (Systole) LA ESV Index: 18.90 mL/m2 Aortic Valve AoV Peak Napoleon.: 0.95 m/s AO Peak Gr.: 3.64 mmHg LVOT Max P.93 mmHg AO Mean Gr.: 2.10 mmHg LVOT Mean P.36 mmHg LVOT Max V: 0.86 m/s AO V2 VTI: 20.02 cm LVOT Mean V: 0.53 m/s CAMRYN (VTI): 2.61 cm2 LVOT V1 VTI: 16.20 cm Mitral Valve E/A Ratio: 0.63 MV Decel. Time: 509.70 ms MV E Max Napoleon.: 0.55 m/[place] [address] 2 D/M-MODE ECHOCARDIOGRAM Name: NAYELY JAQUEZ Room: [address] IN M.R.#: [id number] Admission: 05/15/19 Attend Phys: Cheryl Liu Discharge: Date of : 39 Date of Service: 05/17/19 1351 Report #: [id number] MV PHT: 147.81 ms MVA (PHT): 1.49 cm2 TDI E/Lateral E': 6.11 E/Medial E': 9.17 Medial E' Napoleon.: 0.06 m/s Lateral E' Napoleon.: 0.09 m/s Pulmonary Valve PV Peak Napoleon.: 0.93 m/s PV Peak Gr.: 3.45 mmHg Tricuspid Valve RAP Estimate: 5.00 mmHg TR Peak Gr.: 25.11 mmHg RVSP: 30.00 mmHg PA Pressure: 30.00 mmHg Left Ventricle The left ventricle is normal size. There is normal LV segmental wall motion. There is normal left ventricular wall thickness. Left ventricular systolic function is normal. The left ventricular ejection fraction is within the normal range. LVEF is 65-70%. Grade I - abnormal relaxation pattern. Right Ventricle The right ventricle is normal size. The right ventricular systolic function is normal. Pacemaker lead is present in the right ventricle. Atria The left atrium size is normal. The right atrium size is normal. Aortic Valve Mild aortic valve sclerosis. Trace aortic regurgitation. There is no aortic valvular stenosis. Mitral Valve There is mitral annular calcification. There is no mitral valve regurgitation noted. No evidence of mitral valve stenosis. Tricuspid Valve The tricuspid valve is normal in structure. Trace tricuspid regurgitation. Pulmonic Valve The pulmonary valve is normal in structure. [place] [address] 2 D/M-MODE ECHOCARDIOGRAM Name: NAYELY JAQUEZ Room: [address] IN ..#: [id number] Admission: 05/15/19 Attend Phys: Cheryl Liu Discharge: Date of : 39 Date of Service: 05/17/19 1351 Report #: [id number] Great Vessels The aortic root is normal in size. IVC is normal in size and collapses >50% with inspiration. Pericardium There is no pericardial effusion. <Conclusion> The left ventricle is normal size. There is normal left ventricular wall thickness. Left ventricular systolic function is normal. The left ventricular ejection fraction is within the normal range. LVEF is 65-70%. Grade I - abnormal relaxation pattern. The right ventricle is normal size. The left atrium size is normal. Mild aortic valve sclerosis. Trace aortic regurgitation. There is no aortic valvular stenosis. There is mitral annular calcification. There is no mitral valve regurgitation noted. No evidence of mitral valve stenosis. The tricuspid valve is normal in structure. Trace tricuspid regurgitation. IVC is normal in size and collapses >50% with inspiration. There is no pericardial effusion. There is normal LV segmental wall motion. Pacemaker lead is present in the right ventricle. <ELECTRONICALLY SIGNED> By: Varinder Maurer MD, FACC 05/17/19 1351 135 1351 Varinder Maurer MD, FACC /INF
[2019-05-18] VITALS (33 sets, daily range): BP systolic 93–138; BP diastolic 40–65
[2019-05-18 04:39] LABS: HEMATOCRIT 20.8 % (37.0-47.0); MCH 35.7 pg (26.0-34.0); MCHC 34.5 g/dL (28.0-37.0); MCV 103.3 fL (80.0-100.0); MPV 8.1 fl. (7.2-11.1); RBC 2.01 mil/uL (4.20-5.00); RDW-CV 13.2 % (10.5-14.5); WBC 6.3 thou/uL (4.0-11.0)
[2019-05-18 04:44] LABS: CALCIUM 8.5 mg/dL (8.5-10.1); CREATININE 1.3 mg/dL (0.6-1.3); POTASSIUM 4.8 mmol/L (3.5-5.1)
[2019-05-18 04:55] LABS: HEMOGLOBIN 7.2 gm/dL (12.0-15.0)
[2019-05-18 06:28] LABS: HEMATOCRIT 20.8 % (37.0-47.0)
[2019-05-18 13:42] LABS: HEMATOCRIT 25.2 % (37.0-47.0); HEMOGLOBIN 8.6 gm/dL (12.0-15.0)
--- NOTE | 2019-05-18 16:58 | NUR ---
ASSUMED CARE AT 1900H, ON NC AT 2LPM AND TOLERATED.PT WAS MORE AWAKE AND RESPONDING. OBEYS COMMAND AND CAN ANSWER SIMPLE QUESTIONS. SEEN BY OT/PT AND SAT BESIDE THE BED. 1 UNIT BLOOD GIVEN AND NO REACTION NOTED. DTR CAME AND UPDATE GIVEN.ORIENT PT, CONTINUE MONITORING AND TOWARD GOALS.
[2019-05-19] VITALS (21 sets, daily range): BP systolic 101–147; BP diastolic 54–75
[2019-05-19 03:21] LABS: HEMATOCRIT 24.5 % (37.0-47.0); HEMOGLOBIN 8.3 gm/dL (12.0-15.0); MCH 33.9 pg (26.0-34.0); MCV 99.6 fL (80.0-100.0); MPV 7.9 fl. (7.2-11.1); RBC 2.46 mil/uL (4.20-5.00); RDW-CV 15.5 % (10.5-14.5); WBC 5.8 thou/uL (4.0-11.0)
[2019-05-19 03:35] LABS: CALCIUM 8.5 mg/dL (8.5-10.1); CREATININE 0.9 mg/dL (0.6-1.3); POTASSIUM 4.1 mmol/L (3.5-5.1)
--- NOTE | 2019-05-19 05:37 | NUR ---
PT. SOMEWHAT PROGRESSING TOWARDS GOALS. CANNOT COMMUNICATE VERBALLY, DOES SPONTANEOUSLY SAY YES/NO WHEN NO QUESTIONS WERE ASKED. TURNED Q2H TO MAINTAIN SKIN INTEGRITY. A-PACED ON DOCUMENT CONTROLLER. BP'S WITHIN NORMAL LIMITS. DRESSING ON RIGHT HIP REMAINS CLEAN/DRY/INTACT. 2L O2 WITH END TIDAL CO2 MONITORING. IVF INFUSING, WILL CONTINUE TO MONITOR.
--- NOTE | 2019-05-19 18:20 | NUR ---
MINIMAL PROGRESS TOWARDS MORNING GOAL. UNABLE TO ASSESS PAIN LEVELS PATIENT IS UNABLE TO VERBALIZE DISCOMFORT. SHE WAS ABLE TO EAT APPROXIMATELY 20% OF HER MEALS.SHE WAS ABLE TO TAKE MORNING PO MEDS WITH PUDDING. TURNED EVERY TWO HOURS.. SKIN INTACT
[2019-05-20] VITALS (7 sets, daily range): BP systolic 113–146; BP diastolic 60–76
--- NOTE | 2019-05-20 02:16 | NUR ---
RECEIVED REPORT AND ASSUMED CARE AT 1900. VSS. CARDIAC MONITORING IN PLACE. PT DOWNGRADED TO M/S- TELE 05/19. PT TRACKS WHEN INTERACTED WITH , OTHERWISE NON RESPOSIVE VERBALLY/ DOES NOT FOLLOW COMMANDS. ASSESSMENT CONPLETED CHARTED. HIB ABDUCTION PILLOW IN PLACE PER ORDERS WHILE IN BED. PT ON RA. BED LOCKED IN LOWEST POSITION, CALL LIGHT WITHIN REACH, BED ALARM ON. PER REPORT PATIENT TAKES PO MEDICATION CRUSHED IN PUDDING. PT PO HS MEDICATION HELD R/T PT NOT TAKING BITES/ TURNING HEAD AWAY/ UNABLE TO FOLLOW DIRECTIONS TO SWALLOW.
--- NOTE | 2019-05-20 10:00 | NUR ---
RECEIVED REPORT FRON TIM RAMOS. PT TRANSFERRED FROM ICU. PT IS ALERT AND ORIENTED TO SELF ONLY. PT DOES SAY HIP HURTS. DRESSING TO RIGHT HIP INTACT. NO NEW CONCERNS. HOURLY ROUNDING AND FALL PRECAUTIONS IN PLACE FOR PT SAFETY. ASSESSMENT COMPLETED CHARTED. CLWR.
[2019-05-21] VITALS: BP 134/55
--- NOTE | 2019-05-21 01:00 | NUR ---
INITAL ASSESMENT COMPLETED AT 2049. PT ORIENTED TO PLEASANT AND COOPERATIVE, DENIED PAIN AT THAT TIME. CALL LIGHT IN REACH, BED ALARM ON.
[2019-05-21 04:00] VITALS: BP 127/67
[2019-05-21 04:32] LABS: HEMATOCRIT 23.4 % (37.0-47.0); HEMOGLOBIN 8.3 gm/dL (12.0-15.0); MCH 34.4 pg (26.0-34.0); MCHC 35.3 g/dL (28.0-37.0); MCV 97.5 fL (80.0-100.0); MPV 7.7 fl. (7.2-11.1); RBC 2.4 mil/uL (4.20-5.00); RDW-CV 15.1 % (10.5-14.5); WBC 3.9 thou/uL (4.0-11.0)
[2019-05-21 05:24] LABS: CALCIUM 8.3 mg/dL (8.5-10.1); POTASSIUM 3.4 mmol/L (3.5-5.1)
[2019-05-21 07:00] VITALS: BP 157/91
--- NOTE | 2019-05-21 08:22 | NUR ---
CM left VM for Pt's dtr to discuss disposition. Pt not participating well with therapies, so not confident that Pt's insurance will auth skilled. It appears that Pt was living at home alone prior to this hospital stay, neither nurse or Dr feel that Pt is safe to return home alone, possible LTC placement vs home with family. Consult for hospice placed. Awaiting call back
--- NOTE | 2019-05-21 10:00 | NUR ---
INITAL ASSESSMENT COMPLETED CHARTED. VSS. TRACING A PACED ON MONITOR. PT TURNED Q2 HRS FOR SKIN INTEGRITY. NO NEW CONCERNS AT THSI TIME. HOURLY ROUNDING AND FALL PRECAUTIONS IN PLACE FOR PT SAFETY. CLWR.
[2019-05-21 16:06] VITALS: BP 153/74
[2019-05-22] VITALS: BP 126/81
--- NOTE | 2019-05-22 05:05 | NUR ---
PATIENT SLEPT MOST OF THE NIGHT. IV REMAINS SALINE LOCKED. OAKES REMAINS TO DEPENDENT DRAIN. DRESSING REMAINS INTACT TO RIGHT HIP AND ABDUCTOR PILLOWS REMAINS IN PLACE FOR HIP PRECAUTIONS. PATIENT WAS TURNED ABOUT EVERY TWO HOURS. WILL CONTINUE TO MONITOR.
[2019-05-22 09:00] VITALS: BP 126/67
--- NOTE | 2019-05-22 10:26 | NUR ---
Spoke with Pt's son, son continues to have questions regarding Pt's prognosis and disposition. CM to have Dr contact son to discuss current health. CM to touch base with son post that conversation.
--- NOTE | 2019-05-22 18:06 | NUR ---
PT AWAKE/ALERT, VSS. PT TURNED Q2H. PT FED BY NURSING STAFF AT ALL MEALS. PILLS CRUSHED AND GIVEN IN PUDDING, NO DIFFICULTY. PT RESTING IN ROOM WITH CALL LIGHT IN REACH. NO S/S DISTRESS/DISCOMFORT. URINARY CATHETER PATENT, YELLOW COLORED URINE OBSERVED IN DRAINAGE BAG. DRESSING TO R HIP C/D/I. DR FITCH SPOKE TO FAMILY ABOUT DC PLANS. ORAL CARE PERFORMED. ABDUCTOR PILLOW INPLACE.
[2019-05-22 21:08] VITALS: BP 92/56
--- NOTE | 2019-05-23 05:22 | NUR ---
PATIENT SLEPT WELL DURING THIS SHIFT. PT TURNED Q2H PER PROTOCAL. PT WITH YELLOW URINE IN OAKES CATHETER. MEDICATIONS CRUSED AND PUT IN PUDDING. PT IS ABLE TO TAKE MEDS WELL THIS WAY. PT WITH SALINE LOCK IN RT FOREARM. PT NEEDS ASSISTANCE WITH MEALS. PT WITH DSG ON RT HIP; DSG C/D/I. PT WITH SOME EDEMA IN RT ARM FROM PAST STROKE. FREQUENTLY USED ITEMS AND CALL LIGHT WITHIN REACH. SIDERAILS UPX3 AND BED ALARM ON. WILL CONTINUE TO MONITOR.
[2019-05-23 09:00] VITALS: BP 141/63
--- NOTE | 2019-05-23 12:32 | NUR ---
Nutrition: Pt assessed for LOS. Admitted with hip FX. Albumin 3.4. Regular diet ordered. Wts are variable bed wts - currently 119#. H/o osteoporosis, dementia, HTN, DJD. Pt eating 20-50% of meals. RD to order Ensure for encouragement of good po intake. Mild risk.
--- NOTE | 2019-05-23 16:41 | NUR ---
Pt son called SW and stated that the family would want and be ready to take pt home tomorrow and will pick pt up at 4:30 pm. SW to continue to follow to assist with finalizing safe dc plan.
[2019-05-23 17:15] VITALS: BP 118/52
--- NOTE | 2019-05-23 18:55 | NUR ---
PATIENT HAS BEEN AWAKE AND ALERT TO PERSON THIS SHIFT. PATIENT APPEARS TO NOT BE IN PAIN. IV SALINE LOCKED. PATIENT CONTINUES WITH ADDUCTOR WEDGE IN PLACE. TURNED EVERY 2 HOURS. PHYSICAL THERAPY ATTEMPTED TO WORK WITH PATIENT WHILE FAMILY IN ROOM. VIOLETTE BLEVINS. GUERITA PLANNING IN PROCESS. FALL PRECAUTIONS IN PLACE. HOURLY ROUNDING COMPLETED. CALL LIGHT WITHIN REACH. WILL CONTINUE WITH PLAN OF CARE.
[2019-05-23 20:30] VITALS: BP 114/59
--- NOTE | 2019-05-24 05:36 | NUR ---
PT SLEPT OFF AND ON OVERNIGHT, CALM IN BED, NO APPARENT PAIN. AO TO SELF. TAKING PILLS CRUSHED IN PUDDING. ORAL CARE GIVEN, LIP MOISTURIZER APPLIED PRN. PT TURNED AND REPOSITIONED Q2 HOURS AND PRN NEEDED FOR COMFOR AND SKIN INTEGRITY. ABDUCTOR PILLOW REMAINS IN PLACE, R HIP DRSG CDI. OAKES DRAINING YELLOW URINE. RFA SL. DNR. NO LABS THIS MORNING. POSSIBLE DC HOME WITH FAMILY AND HOSPICE TODAY. CALL LITE IN EASY REACH, BED ALARM ON FOR SAFETY.
[2019-05-24 08:30] VITALS: BP 110/53
[2019-05-24 11:32] LABS: HEMATOCRIT 26.1 % (37.0-47.0); MCH 34.3 pg (26.0-34.0); MCHC 34.4 g/dL (28.0-37.0); MCV 99.7 fL (80.0-100.0); MPV 7.4 fl. (7.2-11.1); RBC 2.62 mil/uL (4.20-5.00); RDW-CV 15.3 % (10.5-14.5); WBC 4.8 thou/uL (4.0-11.0)
[2019-05-24 11:44] LABS: CALCIUM 8.9 mg/dL (8.5-10.1); CREATININE 1.2 mg/dL (0.6-1.3); POTASSIUM 3.5 mmol/L (3.5-5.1)
[2019-05-24] MEDS ORDERED: FEVERALL325 MG RECTAL (12:46)
[2019-05-24] MEDS ORDERED: ASPIRIN300 MG RECTAL (12:46)
[2019-05-24 12:57] VITALS: BP 110/53
[2019-05-24] MEDS ORDERED: MSL20MG/ML SUBLING (13:07)
[2019-05-24] MEDS ORDERED: ASPIRIN325 PO (13:13)
[2019-05-24] MEDS ORDERED: HYDROCODON-ACE1 EAC7 PO (13:14)
[2019-05-24 17:06] VITALS: BP 110/53
--- NOTE | 2019-05-24 17:07 | NUR ---
Pt to dc home with family care and [facility]. MARIA DEL ROSARIO spoke with pt son Walter several times throughout the day; determined pt need for ambulance and arranged ambulance transport. MARIA DEL ROSARIO arranged ambulance for next available molded goods spot picker. MARIA DEL ROSARIO informed pt son and he said that he won't be able to come up to the hospital after all. MARIA DEL ROSARIO discussed [facility] to arrange signing back on service and will provide pt with needed DME and support. Pt son had talked with [facility] as well. MARIA DEL ROSARIO Faxed info and orders to [facility].
--- NOTE | 2019-05-24 17:40 | NUR ---
PATIENT AWAKE. PATIENT TURNED AND REPOSITIONED Q2 HOURS THROUGHOUT SHIFT. IV REMOVED. CLARIFIED WITH DR. FITCH THAT PATIENT CAN DISCHARGE WITH OAKES CATHETER. ALL SAFETY MEASURES MAINTAINED. DISCHARGE PAPERWORK AND PRESCRIPTIONS SENT WITH PATIENT. DRESSING OVER INCISION CLEAN DRY AND INTACT. REPORT GIVEN TO EMS FOR TRANSPORT TO HOME. PATIENT SON, JESSE, AWARE. PATIENT'S DAUGHTER TO MEET EMS AT PATIENT'S HOME.
--- NOTE | 2019-05-29 06:51 | OP ---
[address] [address] OPERATIVE REPORT Name: NAYELY JAQUEZ Room: [address] IN M.R.#: [id number] Admission: 05/15/19 Attend Phys: Wilbert Dias Discharge: 05/24/19 Date of : 39 Report #: [id number] THIS REPORT FOR: //name// CC: Cheryl Liu [facility] DATE OF SERVICE: 05/16/2019 PREOPERATIVE DIAGNOSIS: Closed displaced subcapital right hip fracture. POSTOPERATIVE DIAGNOSIS: Closed displaced subcapital right hip fracture. OPERATION PERFORMED: Hemiarthroplasty, right hip. SURGEON: Toni Madrid DO. PATENT SEARCHER: Tomas Ramos DO SECOND FACILITY SECURITY OFFICER: Frank Fuchs DO ANESTHESIA: Spinal and 30 mL of Marcaine 0.5% plain at closure. GROSS PATHOLOGY: There was evidence of a displaced subcapital right hip fracture. There was marked loss of the gluteus medius and minimus muscle tissue at its insertion. There was marked contractures about the right knee and the right hip. IMPLANTS UTILIZED: Concepcion size 10 standard body VerSys fiber metal taper, standard, 47 mm shell with a -3.5 neck length. DESCRIPTION OF PROCEDURE: The patient was brought to the operating room where spinal block anesthetic was administered. Preoperative antibiotics were given. The patient was placed on the operating table in lateral position, right hip up. A Hibiclens scrub and a ChloraPrep, prep were done to the right hip, leg. The patient was draped in a sterile manner. An incision was then made approximately 4-1/2 inches in length on the lateral aspect of the right hip. It was carried down through the skin and subcuticular material by sharp dissection. Tensor fascia andre split in line with the incision. Gluteus medius and minimus were transected at the musculotendinous junction, stated above, there was absence of some of the muscle tissue. An opening H-type capsulotomy was performed. The femoral neck was marked. Osteotomy was performed. The femoral head was then removed, measured. The trial 47 noted to be the best fit. Attention was turned to the femur, utilizing the box osteotome, the medial portion of the greater trochanter was removed. The T reamer was placed down the shaft and the trochanteric broach was utilized. The femur was then broached to 10 mm, which was a good tight fit with no movement noted in trying to rotate [place] [address] OPERATIVE REPORT Name: NAYELY JAQUEZ Room: [address] IN M.R.#: [id number] Admission: 05/15/19 Attend Phys: Wilbert Dias Discharge: 05/24/19 Date of : 39 Report #: [id number] trial reduction was done. Components fit well. The hip was stable. Trial components were removed. The final femoral stem was impacted into position. The bipolar cup was assembled, placed on the femoral stem. The hip was then reduced. The hip fit well and was stable. The remaining capsule was closed with odd Vicryl suture, gluteus medius and minimus. The remaining portion of it was reattached to the greater trochanter. Tensor fascia andre closed with odd Vicryl suture, subcutaneous with 2-0 Vicryl and spencer on the skin. Estimated blood loss was approximately 400 mL. The wound was thoroughly irrigated throughout the entire procedure. Needle and sponge count reported as correct. The patient was transferred to the recovery room in stable condition. <ELECTRONICALLY SIGNED> By: Rob Martinez DO 05/29/19 0651 1330 [id number] Madrid DO /dahiana
== END 2019-05-24 17:30 | disposition hospice, home (50) | DRG 469 ==
LOC: M.ERS 18:29 → M.TBA-ER 20:32 → M.ICU 20:32 → M.2W 20:32 → M.TBA-ER 05-16 09:03 → M.ICU 05-16 17:27 → M.TBA-ER 05-16 18:58 → M.ICU 05-16 18:58 → M.2W 05-20 09:20 → M.3W 05-21 12:30
PROVIDERS: Family Medicine; Internal Medicine; Orthopaedic Surgery; Registered Nurse; ADMIT Internal Medicine
PROC: 0SRR01Z Replacement of Right Hip Joint, Femoral Surface with Metal Synthetic Substitute, Open Approach (ICD-10-PCS; principal; 2019-05-16)
PROC: 5A09357 Assistance with Respiratory Ventilation, Less than 24 Consecutive Hours, Continuous Positive Airway Pressure (ICD-10-PCS; principal; 2019-05-16)
PROC: 5A09357 Assistance with Respiratory Ventilation, Less than 24 Consecutive Hours, Continuous Positive Airway Pressure (ICD-10-PCS; 2019-05-17)
PROC: 30233N1 Transfusion of Nonautologous Red Blood Cells into Peripheral Vein, Percutaneous Approach (ICD-10-PCS; 2019-05-18)
DX: M80.051A Age-related osteoporosis with current pathological fracture, right femur, initial encounter for fracture (principal); N17.0 Acute kidney failure with tubular necrosis; J96.91 Respiratory failure, unspecified with hypoxia; N18.4 Chronic kidney disease, stage 4 (severe); E78.00 Pure hypercholesterolemia, unspecified; E03.9 Hypothyroidism, unspecified; F03.90 Unspecified dementia, unspecified severity, without behavioral disturbance, psychotic disturbance, mood disturbance, and anxiety; D64.9 Anemia, unspecified; I12.9 Hypertensive chronic kidney disease with stage 1 through stage 4 chronic kidney disease, or unspecified chronic kidney disease; M19.90 Unspecified osteoarthritis, unspecified site; I95.9 Hypotension, unspecified; R29.6 Repeated falls; J30.2 Other seasonal allergic rhinitis; Z95.0 Presence of cardiac pacemaker; Z79.899 Other long term (current) drug therapy